=== PATIENT | female | born 1980 | race Caucasian/White ===

== ENCOUNTER 2017-07-21 03:18 | Emergency (ER) | payer SELFPAY ==
[~2017-07-21] VITALS: Ht 157.5 cm; Wt 55.0 kg
[~2017-07-21 03:18] MED LIST: ARIP10IN IM; IBUP1TAB7 PO; MICO100S VAGINAL
[2017-07-21 03:19] VITALS: BP 142/87; PULSE 108; RESP 16; TEMP 98.1; O2SAT 97
[2017-07-21] MEDS ORDERED: CLIN150 PO (03:44)
[2017-07-21] MEDS ORDERED: HYDR-3516 PO (03:44)
[2017-07-21] MEDS ORDERED: ACETAMINOPHEN/HYDROcodone 325 MG/5 MG TAB PO ONE (03:45)
[2017-07-21] MEDS ORDERED: CLINDAMYCIN 150 MG CAP PO ONE (03:45)
--- NOTE | 2017-07-21 03:58 | PD ---
HPI Chief Complaint: Oral / Dental Pain or Problem Time Seen by Provider: 03:37 Travel History International Travel<30 days: No Contact w/Intl Traveler<30days: No Traveled to known affect area: No History of Present Illness HPI 37-year-old white female presents from his department complaints of dental pain and facial swelling over last 3 days. Patient states that she's had problems with her teeth in the past have been more severe in the last 3 days. Pain is moderate to severe. No alleviating factors. No exacerbating factors. She denies any difficulty swallowing. No shortness of breath or wheezing. PFSH Past Medical History Medical History: Denies Significant Hx Diminished Hearing: No Tetanus Vaccination: Unknown ?: Not LMP: 06/28/2017 Tubal Ligation: Yes Past Surgical History Section: Yes Social History Alcohol Use: Yes (socially) Tobacco Use: Yes Substance Use: No Allergies-Medications (Allergen,Severity, Reaction): Coded Allergies: penicillin G (Verified Allergy, Severe, hives, 04/09/17) Reported Meds & Prescriptions Reported Meds & Active Scripts Active Hydrocodone-Acetaminophen 5-325 mg Tab 1 Tab PO Q6H PRN Cleocin (Clindamycin HCl) 150 Mg Cap 300 Mg PO Q6H Miconazole 7 Vaginal Supp 100 Mg Supp 100 Mg VAGINAL HS Ibuprofen 800 Mg Tab 800 Mg PO Q6HR PRN Reported Abilifalfred Maintena Dual Chamber Inj (Aripiprazole) 400 Mg Inj 400 Mg IM ONCE Review of Systems General / Constitutional: No: Fever Eyes: No: Visual changes HENT: Positive: Dental Difficulties, No: Headaches, Sore Throat, Neck Pain, Ear Discharge, Earache Cardiovascular: No: Chest Pain or Discomfort Respiratory: No: Shortness of Breath Gastrointestinal: No: Abdominal Pain Genitourinary: No: Dysuria Musculoskeletal: No: Pain Skin: No Rash Neurologic: No: Weakness Psychiatric: No: Depression Endocrine: No: Polydipsia Hematologic/Lymphatic: No: Easy Bruising Physical Exam Narrative GENERAL: Well-developed, well-nourished in no acute distress. Nontoxic appearing. HEAD: Patient has mild swelling to her right maxilla, atraumatic. EYES: Pupils equal round and reactive. Extraocular motions intact. No scleral icterus. No injection or drainage. ENT: TMs clear without erythema. The external auditory canals clear. Nose: clear . Posterior pharynx is pink and moist. No tonsillar edema or exudate. Uvula midline. Airway patent. Patient has diffuse periodontal disease. She has multiple dental caries and gingival recession. She has a tooth and what appears to be #7 decayed to the gumline. There is an obvious abscess. Tender to percussion. NECK: Trachea midline.Supple, nontender, moves head freely. No central bony tenderness or spasm. CARDIOVASCULAR: Regular rate and rhythm without murmurs, gallops, or rubs. RESPIRATORY: Clear to auscultation. Breath sounds equal bilaterally. No wheezes , rales, or rhonchi. GASTROINTESTINAL: Abdomen soft, non-tender, nondistended. No hepato-splenomegaly , or palpable masses. No guarding. EXTREMITIES: No clubbing, cyanosis, or edema. No joint tenderness, effusion, or edema noted. BACK: Nontender without deformity or crepitance. No flank tenderness. Data Data Last Documented VS Vital Signs Date Time Temp Pulse Resp B/P (MAP) Pulse Ox O2 Delivery O2 Flow Rate FiO2 07/21/17 03:19 98.1 108 16 142/87 (105) 97 Room Air Orders Orders Clindamycin (Cleocin) (07/21/17 03:45) Acetamin-Hydrocod 325-5 Mg ([place] 5-325 (07/21/17 03:45) Ed Discharge Order (07/21/17 03:47) MDM Medical Decision Making Medical Screen Exam Complete: Yes Emergency Medical Condition: Yes Medical Record Reviewed: Yes Differential Diagnosis MDM: Moderate Differential diagnoses: Dental abscess, dental caries, osteitis, cellulitis Narrative Course Patient's given clindamycin 300 mg by mouth and Lortab 5 milligram by mouth. This is dental abscess Diagnosis Primary Impression: acute dental abscess Patient Instructions: Narcotic given in the ED Med/Other Pt SpecificInfo: Prescription(s) given (pHYSICAL THROAT ALL OUT OF ) Scripts Hydrocodone-Acetaminophen (Hydrocodone-Acetaminophen) 5-325 mg Tab 1 TAB PO Q6H Y for PAIN, #12 TAB 0 Refills Prov: Haris Rogers MD 07/21/17 Clindamycin (Cleocin) 150 Mg Cap 300 MG PO Q6H for Infection, #80 CAP 0 Refills Prov: Haris Rogers MD 07/21/17 Disposition: 01 DISCHARGE HOME (ERASED) Condition: Stable Migue Kaufman Jul 21, 2017 03:57
== END 2017-07-21 04:09 | disposition home or self-care (01) ==
LOC: NEPD 03:18
DX: K04.7 Periapical abscess without sinus (principal); K02.9 Dental caries, unspecified; Z72.0 Tobacco use
CPT/HCPCS: 99284

== ENCOUNTER 2017-11-10 03:42 | Inpatient (IN) | payer SELFPAY ==
[~2017-11-10] VITALS: Ht 157.5 cm; Wt 50.0 kg
[~2017-11-10 03:42] MED LIST changes: +CLIN150 PO; +HYDR-3516 PO
[2017-11-10 03:50] VITALS: BP 135/75; PULSE 98; RESP 16; TEMP 98.5; O2SAT 98
--- NOTE | 2017-11-10 09:52 | PD ---
HPI Chief Complaint: Skin Problem Time Seen by Provider: 09:49 Travel History International Travel<30 days: No Contact w/Intl Traveler<30days: No Traveled to known affect area: No History of Present Illness HPI Patient 37-year-old female presents emergency department for evaluation of multiple areas of cellulitis and abscess on her person. She states is been going on for months. She states that the pain became unbearable today and that is why she decided to come in and be seen. She does admit to IV heroin use states he just started again about a week ago because of all the stresses in her life. She states that she is very concerned because she has a history of endocarditis and has to be very careful. She denies any fevers denies any chest pain denies any shortness of breath. She is near hysterical on arrival. Her chief complaint is at her right thumb is swollen. PFSH Past Medical History Heart Rhythm Problems: Yes (endocarditis) Cerebrovascular Accident: Yes Diminished Hearing: No Tetanus Vaccination: < 5 Years Influenza Vaccination: No ?: Not LMP: 11/09/2017 Tubal Ligation: Yes Past Surgical History Section: Yes Social History Alcohol Use: No Tobacco Use: Yes Substance Use: Yes (IV drug user) Allergies-Medications (Allergen,Severity, Reaction): Coded Allergies: penicillin G (Verified Allergy, Severe, hives, 11/10/17) Reported Meds & Prescriptions Reported Meds & Active Scripts Active Hydrocodone-Acetaminophen 5-325 mg Tab 1 Tab PO Q6H PRN Cleocin (Clindamycin HCl) 150 Mg Cap 300 Mg PO Q6H Miconazole 7 Vaginal Supp 100 Mg Supp 100 Mg VAGINAL HS Ibuprofen 800 Mg Tab 800 Mg PO Q6HR PRN Reported Abilify Maintena Dual Chamber Inj (Aripiprazole) 400 Mg Inj 400 Mg IM ONCE Review of Systems Except as stated in HPI: all other systems reviewed are Neg Physical Exam Narrative GENERAL: WD/WN, anxious. SKIN: Warm and dry. HEAD: Atraumatic. Normocephalic. EYES: Pupils equal and round. No scleral icterus. No injection or drainage. ENT: No nasal bleeding or discharge. Mucous membranes pink and moist. Skin changes of tip of nose could be consistent with osler node or cellulitis. Cellulitis LLE, scattered nodules all over body. Right thumb swelling, no focalized fluctuance. NECK: Trachea midline. No JVD. CARDIOVASCULAR: Regular rate and rhythm. No MGR. RESPIRATORY: No accessory muscle use. Clear to auscultation. Breath sounds equal bilaterally. GASTROINTESTINAL: Abdomen soft, non-tender, nondistended. Hepatic and splenic margins not palpable. MUSCULOSKELETAL: Extremities without clubbing, cyanosis, or edema. No obvious deformities. NEUROLOGICAL: Awake and alert. No obvious cranial nerve deficits. Motor grossly within normal limits. Five out of 5 muscle strength in the arms and legs. Normal speech. PSYCHIATRIC: Appropriate mood and affect; insight and judgment normal. Data Data Last Documented VS Vital Signs Date Time Temp Pulse Resp B/P (MAP) Pulse Ox O2 Delivery O2 Flow Rate FiO2 11/10/17 12:17 85 18 118/79 (92) 100 Room Air 11/10/17 03:50 98.5 Orders Orders Electrocardiogram (11/10/17 09:49) Ckmb (Isoenzyme) Profile (11/10/17 09:49) Complete Blood Count With Diff (11/10/17 09:49) Comprehensive Metabolic Panel (11/10/17 09:49) Magnesium (Mg) (11/10/17 09:49) Prothrombin Time / Inr (Pt) (11/10/17 09:49) Act Partial Throm Time (Ptt) (11/10/17 09:49) Troponin I (11/10/17 09:49) Chest, Single Ap (11/10/17 09:49) Ecg Monitoring (11/10/17 09:49) Iv Access Insert/Monitor (11/10/17 09:49) Oximetry (11/10/17 09:49) Oxygen Administration (11/10/17 09:49) Sodium Chloride 0.9% Flush (Ns Flush) (11/10/17 10:00) Lactic Acid (11/10/17 09:49) Westergren Sedimentation Rate (11/10/17 09:49) C-Reactive Protein (Crp) (11/10/17 09:49) Blood Culture (11/10/17 10:32) Ct Thorax/ Chest Wo Iv Contras (11/10/17 ) Morphine Inj (Morphine Inj) (11/10/17 11:30) Vancomycin Inj (Vancomycin Inj) (11/10/17 11:30) Aztreonam Inj (Azactam Inj) (11/10/17 11:30) Admit Order (Ed Use Only) (11/10/17 ) Labs Laboratory Tests Test 11/10/17 10:45 White Blood Count 11.3 TH/MM3 Red Blood Count 4.07 MIL/MM3 Hemoglobin 12.4 GM/DL Hematocrit 35.0 % Mean Corpuscular Volume 86.1 FL Mean Corpuscular Hemoglobin 30.5 PG Mean Corpuscular Hemoglobin Concent 35.5 % Red Cell Distribution Width 13.2 % Platelet Count 303 TH/MM3 Mean Platelet Volume 7.8 FL Neutrophils (%) (Auto) 76.3 % Lymphocytes (%) (Auto) 13.6 % Monocytes (%) (Auto) 7.2 % Eosinophils (%) (Auto) 2.4 % Basophils (%) (Auto) 0.5 % Neutrophils # (Auto) 8.6 TH/MM3 Lymphocytes # (Auto) 1.5 TH/MM3 Monocytes # (Auto) 0.8 TH/MM3 Eosinophils # (Auto) 0.3 TH/MM3 Basophils # (Auto) 0.1 TH/MM3 CBC Comment DIFF FINAL Differential Comment Erythrocyte Sedimentation Rate 50 mm/hr Prothrombin Time 9.8 SEC Prothromb Time International Ratio 1.0 RATIO Activated Partial Thromboplast Time 23.9 SEC Blood Urea Nitrogen 9 MG/DL Creatinine 0.72 MG/DL Random Glucose 96 MG/DL Total Protein 7.2 GM/DL Albumin 3.1 GM/DL Calcium Level 8.6 MG/DL Magnesium Level 1.9 MG/DL Alkaline Phosphatase 61 U/L Aspartate Amino Transf (AST/SGOT) 36 U/L Alanine Aminotransferase (ALT/SGPT) 38 U/L Total Bilirubin 0.5 MG/DL Sodium Level 138 MEQ/L Potassium Level 3.4 MEQ/L Chloride Level 104 MEQ/L Carbon Dioxide Level 26.0 MEQ/L Anion Gap 8 MEQ/L Estimat Glomerular Filtration Rate 91 ML/MIN Lactic Acid Level 1.0 mmol/L Total Creatine Kinase 86 U/L Troponin I LESS THAN 0.02 NG/ML C-Reactive Protein 5.90 MG/DL [facility] Medical Decision Making Medical Screen Exam Complete: Yes Emergency Medical Condition: Yes Differential Diagnosis Cellulitis, Bacteremia, Sepsis, Endocarditis. Narrative Course Patient roomed in ER, labs, CT chest, vs are fair. However, patient scattered erythematous nodules and cellulitis on person, i have concerns for bacteremia and endocardidits in this patient. Broad spectrum antibiotics started. Will be admitted to Dr. Elliott. Diagnosis Primary Impression: Cellulitis Additional Impression: Bacteremia Admitting Information Admitting Physician Requests: Admit Condition: Thony Rhodes MD Nov 10, 2017 09:52
[2017-11-10] MEDS ORDERED: SODIUM CHLORIDE 0.9% FLUSH 10 ML FLUSH IVF PRN (10:00)
[2017-11-10 10:37] VITALS: O2SAT 100
[2017-11-10 10:57] LABS: AUTOMATED NEUTROPHIL # 8.6 TH/MM3 (1.8-7.7); BASOPHIL # 0.1 TH/MM3 (0-0.2); BASOPHIL % 0.5 % (0.0-2.0); EOSINOPHIL # 0.3 TH/MM3 (0-0.4); EOSINOPHIL % 2.4 % (0.0-4.0); HEMOGLOBIN 12.4 GM/DL (11.6-15.3); LYMPH % 13.6 % (9.0-44.0); LYMPHOCYTE # 1.5 TH/MM3 (1.0-4.8); MEAN CELL VOLUME 86.1 FL (80.0-100.0); MEAN CORPUSCULAR HEMOGLOBIN 30.5 PG (27.0-34.0); MEAN CORPUSCULAR HGB CONC 35.5 % (32.0-36.0); MEAN PLATELET VOLUME 7.8 FL (7.0-11.0); MONO % 7.2 % (0.0-8.0); MONOCYTE # 0.8 TH/MM3 (0-0.9); NEUT % 76.3 % (16.0-70.0); PLATELET COUNT 303 TH/MM3 (150-450); RED BLOOD COUNT 4.07 MIL/MM3 (4.00-5.30); RED CELL DISTRIBUTION WIDTH 13.2 % (11.6-17.2); WHITE BLOOD COUNT 11.3 TH/MM3 (4.0-11.0)
[2017-11-10 11:07] LABS: PROTHROMBIN TIME - PATIENT 9.8 SEC (9.8-11.6)
[2017-11-10 11:13] LABS: ALBUMIN 3.1 GM/DL (3.4-5.0); AST (GOT) 36 U/L (15-37); BLOOD UREA NITROGEN 9 MG/DL (7-18); CALCIUM 8.6 MG/DL (8.5-10.1); CHLORIDE 104 MEQ/L (98-107); CREATININE 0.72 MG/DL (0.50-1.00); GLOMERULAR FILTRATION RATE 91 ML/MIN (>89); GLUCOSE,RANDOM 96 MG/DL (74-106); MAGNESIUM 1.9 MG/DL (1.5-2.5); SODIUM (NA) 138 MEQ/L (136-145)
[2017-11-10 11:16] LABS: ALKALINE PHOSPHATASE 61 U/L (45-117); ALT (GPT) 38 U/L (10-53); TOTAL BILIRUBIN ADULT 0.5 MG/DL (0.2-1.0); TOTAL PROTEIN 7.2 GM/DL (6.4-8.2); TROPONIN I LESS THAN 0.02 NG/ML (0.02-0.05)
--- NOTE | 2017-11-10 11:23 | RADRPT ---
EXAM DATE/TIME: 11/10/2017 11:12 [facility] COMPARISON: CHEST SINGLE AP, November 10, 2017, 10:55. INDICATIONS : Shortness of breath, possible pneumonia. RADIATION DOSE: 3.88 CTDIvol (mGy) MEDICAL HISTORY : Pancreatitis. SURGICAL HISTORY : section. Tubal. ENCOUNTER: Initial ACUITY: 1 day PAIN SCALE: 0/10 LOCATION: chest TECHNIQUE: Volumetric scanning of the chest was performed. Using automated exposure control and adjustment of t he mA and/or kV according to patient size, radiation dose was kept as low as reasonably achievable to obtain optimal diagnostic quality images. DICOM format image data is available electronically for r eview and comparison. Follow-up recommendations for detected pulmonary nodules are based at a minimum on nodule size and pa tient risk factors according to Fleischner Society Guidelines. FINDINGS: LUNGS: There is no consolidation or pneumothorax. No concerning pulmonary nodule is visualized. Mild perib ronchial thickening in the lower lobes without consolidation PLEURAE: There is no pleural thickening or pleural effusion. MEDIASTINUM: The heart and great vessels demonstrate no acute abnormality. There is no mediastinal or hilar lymph adenopathy. AXILLAE: Within normal limits. No lymphadenopathy. MUSCULOSKELETAL: Within normal limits for patient age. MISCELLANEOUS: Minimal nephrocalcinosis is noted incompletely evaluated on today's exam. CONCLUSION: Mild peribronchial thickening otherwise negative. There is no pleural effusion or consolidation. Sim Crow MD FACR on November 10, 2017 at 11:20 Board Certified Radiologist. This report was verified electronically.
[2017-11-10] MEDS ORDERED: VANCOMYCIN INJ 1,000 MG in SODIUM CHLOR 0.9% 250 ML INJ 250 ML IV ONE (11:30)
[2017-11-10] MEDS ORDERED: AZTREONAM INJ 1,000 MG in SODIUM CHLORIDE 0.9% INJ 100 ML IV ONE (11:30)
[2017-11-10] MEDS ORDERED: MORPHINE SULFATE 4 MG/ML INJ IV PUSH ONE (11:30)
--- NOTE | 2017-11-10 11:32 | RADRPT ---
EXAM DATE/TIME: 11/10/2017 10:55 [facility] COMPARISON: No previous studies available for comparison. INDICATIONS : Chest pain. 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 SURGICAL HISTORY : None. ENCOUNTER: Initial ACUITY: 1 day PAIN SCORE: 0/10 LOCATION: Bilateral chest FINDINGS: A single view of the chest demonstrates the lungs to be symmetrically aerated without evidence of mas s, infiltrate or effusion. The cardiomediastinal contours are unremarkable. Osseous structures are intact. CONCLUSION: 1. No acute cardiopulmonary disease. Rayo Nelson MD on November 10, 2017 at 11:29 Board Certified Radiologist. This report was verified electronically.
[2017-11-10 12:17] VITALS: BP 118/79; PULSE 85; RESP 18; O2SAT 100
[2017-11-10] MEDS ORDERED: ACETAMINOPHEN 325 MG TAB PO PRN ×2 (12:30)
[2017-11-10] MEDS ORDERED: LACTULOSE SYRUP 20 GM/30 ML CUP PO PRN (12:30)
[2017-11-10] MEDS ORDERED: SENNOSIDES 8.6 MG TAB PO PRN (12:30)
[2017-11-10] MEDS ORDERED: ONDANSETRON HCL 4 MG/2 ML VIAL IVP PRN (12:30)
[2017-11-10] MEDS ORDERED: BISACODYL 10 MG SUPP RECTAL PRN (12:30)
[2017-11-10] MEDS ORDERED: MORPHINE SULFATE 2 MG/ML INJ IV PUSH PRN ×3 (12:30)
[2017-11-10] MEDS ORDERED: Vancomycin Consult Pharmacy 1 EA OTHER SCH (12:30)
[2017-11-10] MEDS ORDERED: METOCLOPRAMIDE HCL 10 MG/2 ML VIAL IV PUSH PRN (12:30)
[2017-11-10] MEDS ORDERED: MAGNESIUM HYDROXIDE SUSP 30 ML CUP PO PRN (12:30)
[2017-11-10] MEDS ORDERED: NALOXONE HCL 0.4 MG/ML AMP IV PUSH PRN (12:30)
[2017-11-10] MEDS ORDERED: SODIUM CHLORIDE 0.9% FLUSH 10 ML FLUSH IV FLUSH PRN ×2 (12:30→13:15)
[2017-11-10] MEDS ORDERED: HALOPERIDOL LACTATE 5 MG/ML AMP IM PRN (13:15)
[2017-11-10] MEDS ORDERED: LORazepam 1 MG TAB PO PRN (13:15)
[2017-11-10] MEDS ORDERED: LORazepam 2 MG/ML VIAL IV PUSH PRN ×4 (13:15)
[2017-11-10] MEDS ORDERED: FLUMAZENIL 0.5 MG/5 ML VIAL IV PUSH PRN (13:15)
[2017-11-10] MEDS ORDERED: LORazepam 2 MG TAB PO PRN (13:15)
[2017-11-10] MEDS ORDERED: cloNIDine HCL 0.1 MG TAB PO PRN (13:15)
--- NOTE | 2017-11-10 13:26 | HHI.HP ---
[facility] No Primary Care Physician Admission Diagnosis Multiple Cellulitis, Possible Bacteremia, Possible Endocarditis. 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 Presented emergency department for evaluation multiple areas of cellulitis and abscess. She has multiple areas on her left leg as well as her right thumb. Been going on for probably a month or so. She states that the pain became unbearable today and she decided to come into the emergency department for it. Does admit to IV heroin use states she started again a couple weeks ago because of stresses in her life. She states that she is very concerned because she has a history of endocarditis. Denies any fevers denies any chest pain or shortness of breath has the right thumb being swollen which appears to be a felon We will get an echocardiogram will start on vancomycin and is Azactam and consult hand surgery Review of Systems Constitutional: COMPLAINS OF: Chills, DENIES: Diaphoretic episodes, Fatigue, Fever, Weight gain, Weight loss, Dizziness, Change in appetite, Night Sweats Endocrine: DENIES: Abnorml menstrual pattern, Heat/cold intolerance, Polydipsia , Polyuria, Polyphagia Eyes: DENIES: Blurred vision, Diplopia, Eye inflammation, Eye pain, Vision loss , Photosensitivity, Double Vision Ears, nose, mouth, throat: DENIES: Tinnitus, Hearing loss, Vertigo, Nasal discharge, Oral lesions, Throat pain, Hoarseness, Running Nose, Epistaxis, Sinus Pain, Toothache, Odynophagia Respiratory: DENIES: Apneas, Cough, Snoring, Wheezing, Hemoptysis, Sputum production Cardiovascular: DENIES: Chest pain, Palpitations, Syncope, Dyspnea on Exertion , PND, Lower Extremity Edema Gastrointestinal: DENIES: Abdominal pain, Black stools, Bloody stools, Constipation, Diarrhea Genitourinary: DENIES: Abnormal vaginal bleeding, Dysmenorrhea, Dyspareunia, Sexual dysfunction Musculoskeletal: DENIES: Joint pain, Muscle aches, Stiffness, Joint Swelling Integumentary: COMPLAINS OF: Abnormal pigmentation, Rash, Nail changes, DENIES : Pruritus, Breast masses, Breast skin changes, Nipple discharge Hematologic/lymphatic: DENIES: Bruising, Lymphadenopathy Immunologic/allergic: DENIES: Eczema, Urticaria Neurologic: COMPLAINS OF: Abnormal gait, Poor Balance, DENIES: Headache, Localized weakness, Paresthesias, Seizures, Speech Problems, Tremor Psychiatric: COMPLAINS OF: Anxiety, Mood changes, Depression, DENIES: Confusion , Hallucinations, Agitation, Suicidal Ideation, Homicidal Ideation, Delusions Except as stated in HPI: all other systems reviewed are Neg Past Family Social History Past Medical History History of endocarditis treated with vancomycin a couple years ago 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 Tubal ligation Tobacco abuse IV drug abuse with heroin Past Surgical History Tubal ligation section Reported Medications Reported Meds & Active Scripts Active Hydrocodone-Acetaminophen 5-325 mg Tab 1 Tab PO Q6H PRN Cleocin (Clindamycin HCl) 150 Mg Cap 300 Mg PO Q6H Miconazole 7 Vaginal Supp 100 Mg Supp 100 Mg VAGINAL HS Ibuprofen 800 Mg Tab 800 Mg PO Q6HR PRN Reported Abilifalfred Maintena Dual Chamber Inj (Aripiprazole) 400 Mg Inj 400 Mg IM ONCE Allergies: Coded Allergies: penicillin G (Verified Allergy, Severe, hives, 11/10/17) Active Ordered Medications Current Medications Sodium Chloride (NS Flush) 2 ml UNSCH PRN IVF FLUSH AFTER USING IV ACCESS; Start 11/10/17 at 10:00; Stop 11/10/17 at 13:03; Status DC Morphine Sulfate (Morphine Inj) 4 mg ONCE ONCE IV PUSH Last administered on at 11:42; Start 11/10/17 at 11:30; Stop 11/10/17 at 11:51; Status DC Vancomycin HCl 1000 mg/Sodium Chloride 250 ml @ 250 mls/hr ONCE ONCE IV Last administered on 11/10/17at 11:42; Start 11/10/17 at 11:30; Stop 11/10/17 at 12:29 ; Status DC Aztreonam 1000 mg/ Sodium Chloride 100 ml @ 200 mls/hr ONCE ONCE IV Last administered on 11/10/17at 12:20; Start 11/10/17 at 11:30; Stop 11/10/17 at 11:59 ; Status DC Pharmacy Profile Note 0 ml @ 0 mls/hr UNSCH OTHER ; Start 11/10/17 at 12:30 Aztreonam 1000 mg/ Sodium Chloride 100 ml @ 200 mls/hr Q12H IV ; Start at 00:00 Sodium Chloride 1,000 ml @ 100 mls/hr Q10H IV ; Start 11/10/17 at 12:23 Sodium Chloride (NS Flush) 2 ml UNSCH PRN IV FLUSH FLUSH AFTER USING IV ACCESS ; Start 11/10/17 at 12:30 Sodium Chloride (NS Flush) 2 ml BID IV FLUSH ; Start 11/10/17 at 21:00 Acetaminophen (Tylenol) 650 mg Q4H PRN PO TEMP > 100.4; Start 11/10/17 at 12:30 Ondansetron HCl (Zofran Inj) 4 mg Q6H PRN IVP NAUSEA OR VOMITING; Start at 12:30 Metoclopramide HCl (Reglan Inj) 5 mg Q6H PRN IV PUSH NAUSEA OR VOMITING; Start 11/10/17 at 12:30 Temazepam (Restoril) 15 mg HS PRN PO INSOMNIA; Start 11/10/17 at 21:00 Enoxaparin Sodium (Lovenox Inj) 40 mg Q24H SQ ; Start 11/10/17 at 14:00 Acetaminophen (Tylenol) 650 mg Q6H PRN PO PAIN SCALE 1 TO 2; Start 11/10/17 at 12:30 Oxycodone HCl (Roxicodone) 10 mg Q4H PRN PO PAIN SCALE 6 TO 10; Start 11/10/17 at 12:30 Morphine Sulfate (Morphine Inj) 2 mg Q3H PRN IV PUSH Pain 3-5; if unable to take PO; Start 11/10/17 at 12:30 Morphine Sulfate (Morphine Inj) 4 mg Q3H PRN IV PUSH Pain 6-10;if unable to take PO; Start 11/10/17 at 12:30 Morphine Sulfate (Morphine Inj) 4 mg Q3H PRN IV PUSH BREAKTHROUGH PAIN; Start 11/10/17 at 12:30 Oxycodone HCl (Roxicodone) 5 mg Q4H PRN PO PAIN SCALE 3 TO 5; Start 11/10/17 at 12:30 Naloxone HCl (Narcan Inj) 0.4 mg UNSCH PRN IV PUSH SEE LABEL COMMENTS; Start at 12:30 Senna/Docusate Sodium (Stephanie-Colace) 1 tab BID PO ; Start 11/10/17 at 21:00 Magnesium Hydroxide (Milk Of Magnesia Liq) 30 ml Q12H PRN PO Mild constipation ; Start 11/10/17 at 12:30 Sennosides (Senokot) 17.2 mg Q12H PRN PO Moderate constipation; Start 11/10/17 at 12:30 Bisacodyl (Dulcolax Supp) 10 mg DAILY PRN RECTAL SEVERE CONSITIPATION; Start at 12:30 Lactulose (Lactulose Liq) 30 ml DAILY PRN PO SEVERE CONSITIPATION; Start at 12:30 Family History Denies other than depression and anxiety Tobacco and alcohol use Social History Tobacco abuse smokes a pack daily Denies any alcohol IV drug use with heroin Physical Exam Vital Signs Vital Signs Date Time Temp Pulse Resp B/P (MAP) Pulse Ox O2 Delivery O2 Flow Rate FiO2 11/10/17 12:17 85 18 118/79 (92) 100 Room Air 11/10/17 10:37 100 Room Air 11/10/17 10:37 98 Room Air 11/10/17 03:50 98.5 98 16 135/75 (95) 98 Physical Exam GENERAL: This is a well-nourished, well-developed patient, in mild distress. SKIN: No rashes, ecchymoses or lesions. Cool and dry. Has multiple wounds on her left lower extremity has a felon on her right thumb that is swollen and tender HEAD: Atraumatic. Normocephalic. No temporal or scalp tenderness. EYES: Pupils equal round and reactive. Extraocular motions intact. No scleral icterus. No injection or drainage. ENT: Nose without bleeding, purulent drainage or septal hematoma. Throat without erythema, tonsillar hypertrophy or exudate. Uvula midline. Airway patent. NECK: Trachea midline. No JVD or lymphadenopathy. Supple, nontender, no meningeal signs. CARDIOVASCULAR: Regular rate and rhythm without murmurs, gallops, or rubs. S1- S2 no S3 or S4 RESPIRATORY: Clear to auscultation. Breath sounds equal bilaterally. No wheezes , rales, or rhonchi. GASTROINTESTINAL: Abdomen soft, non-tender, nondistended. No hepato-splenomegaly , or palpable masses. No guarding. MUSCULOSKELETAL: Extremities without clubbing, cyanosis, or edema. No joint tenderness, effusion, or edema noted. No calf tenderness. Negative Homans sign bilaterally. Multiple wounds on left lower extremity right thumb has a felon NEUROLOGICAL: Awake and alert. Cranial nerves II through XII intact. Motor and sensory grossly within normal limits. Five out of 5 muscle strength in all muscle groups. Normal speech. Insight and judgment is limited Mood and behavior somewhat appropriate Laboratory Laboratory Tests Test 11/10/17 10:45 White Blood Count 11.3 Red Blood Count 4.07 Hemoglobin 12.4 Hematocrit 35.0 Mean Corpuscular Volume 86.1 Mean Corpuscular Hemoglobin 30.5 Mean Corpuscular Hemoglobin Concent 35.5 Red Cell Distribution Width 13.2 Platelet Count 303 Mean Platelet Volume 7.8 Neutrophils (%) (Auto) 76.3 Lymphocytes (%) (Auto) 13.6 Monocytes (%) (Auto) 7.2 Eosinophils (%) (Auto) 2.4 Basophils (%) (Auto) 0.5 Neutrophils # (Auto) 8.6 Lymphocytes # (Auto) 1.5 Monocytes # (Auto) 0.8 Eosinophils # (Auto) 0.3 Basophils # (Auto) 0.1 CBC Comment DIFF FINAL Differential Comment Erythrocyte Sedimentation Rate 50 Prothrombin Time 9.8 Prothromb Time International Ratio 1.0 Activated Partial Thromboplast Time 23.9 Blood Urea Nitrogen 9 Creatinine 0.72 Random Glucose 96 Total Protein 7.2 Albumin 3.1 Calcium Level 8.6 Magnesium Level 1.9 Alkaline Phosphatase 61 Aspartate Amino Transf (AST/SGOT) 36 Alanine Aminotransferase (ALT/SGPT) 38 Total Bilirubin 0.5 Sodium Level 138 Potassium Level 3.4 Chloride Level 104 Carbon Dioxide Level 26.0 Anion Gap 8 Estimat Glomerular Filtration Rate 91 Lactic Acid Level 1.0 Total Creatine Kinase 86 Troponin I LESS THAN 0.02 C-Reactive Protein 5.90 Date/Time Source Procedure Growth Status 11/10/17 10:50 Blood Peripheral Aerobic Blood Culture Pending Received 11/10/17 10:50 Blood Peripheral Anaerobic Blood Culture Pending Received Result Diagram: 11/10/17 1045 11/10/17 1045 Imaging Last Impressions Chest X-Ray 11/10/17 0949 Signed Impressions: Service Date/Time: Friday, November 10, 2017 10:55 - CONCLUSION: 1. No acute cardiopulmonary disease. Rayo Nelson MD Chest CT 11/10/17 0000 Signed Impressions: Service Date/Time: Friday, November 10, 2017 11:12 - CONCLUSION: Mild peribronchial thickening otherwise negative. There is no pleural effusion or consolidation. Sim Crow MD FACR Caprini VTE Risk Assessment Caprini VTE Risk Assessment: Mod/High Risk (score >= 2) Caprini Risk Assessment Model Point Value = 1 Point Value = 2 Point Value = 3 Point Value = 5 Age 41-60 Minor surgery BMI > 25 kg/m2 Swollen legs Varicose veins or History of unexplained or recurrent spontaneous Oral contraceptives or hormone replacement Sepsis (< 1 month) Serious lung disease, including pneumonia (< 1 month) Abnormal pulmonary function Acute myocardial infarction Congestive heart failure (< 1 month) History of inflammatory bowel disease Medical patient at bed rest Age 61-74 Arthroscopic surgery Major open surgery (> 45 min) Laparoscopic surgery (> 45 min) Malignancy Confined to bed (> 72 hours) Immobilizing plaster cast Central venous access Age >= 75 History of VTE Family history of VTE Factor V Leiden Prothrombin [id number] Lupus anticoagulant Anticardiolipin antibodies Elevated serum homocysteine Heparin-induced thrombocytopenia Other congenital or acquired thrombophilia Stroke (< 1 month) Elective arthroplasty Hip, pelvis, or leg fracture Acute spinal cord injury (< 1 month) Prophylaxis Regimen Total Risk Factor Score Risk Level Prophylaxis Regimen 0-1 Low Early ambulation 2 Moderate Order ONE of the following: *Sequential Compression Device (SCD) *Heparin 5000 units SQ BID 3-4 Higher Order ONE of the following medications: *Heparin 5000 units SQ TID *Enoxaparin/Lovenox 40 mg SQ daily (WT < 150 kg, CrCl > 30 mL/min) *Enoxaparin/Lovenox 30 mg SQ daily (WT < 150 kg, CrCl > 10-29 mL/min) *Enoxaparin/Lovenox 30 mg SQ BID (WT < 150 kg, CrCl > 30 mL/min) AND/OR *Sequential Compression Device (SCD) 5 or more Highest Order ONE of the following medications: *Heparin 5000 units SQ TID (Preferred with Epidurals) *Enoxaparin/Lovenox 40 mg SQ daily (WT < 150 kg, CrCl > 30 mL/min) *Enoxaparin/Lovenox 30 mg SQ daily (WT < 150 kg, CrCl > 10-29 mL/min) *Enoxaparin/Lovenox 30 mg SQ BID (WT < 150 kg, CrCl > 30 mL/min) AND *Sequential Compression Device (SCD) Assessment and Plan Assessment and Plan Right thumb diana continue on IV antibiotics with Azactam and vancomycin IV drug abuse with history of endocarditis continue on vancomycin and Azactam will get an echocardiogram may need a BRIDGET Tobacco abuse continue on NicoDerm Heroin abuse have benzodiazepines available for withdrawals DVT prophylaxis with Lovenox GI prophylaxis with Pepcid Withdrawal and pain control with pain meds as prescribed and benzodiazepines Leukocytosis continue on antibiotics Elevated CRP continue on antibiotics Code Status Full code Discussed Condition With Discussed with RN and patient and ER physician Physician Certification 2 Midnight Certification Type: Admission for Inpatient Services Order for Inpatient Services The services are ordered in accordance with Medicare regulations or non- Medicare payer requirements, as applicable. In the case of services not specified as inpatient-only, they are appropriately provided as inpatient services in accordance with the 2-midnight benchmark. Estimated LOS (days): 5 days is the estimated time the patient will need to remain in the hospital, assuming treatment plan goals are met and no additional complications. Post-Hospital Plan: Not yet determined Sim Elliott DO Nov 10, 2017 13:26
[2017-11-10] MEDS ORDERED: NICOTINE 21 MG/24 HR PATCH T-DERMAL ONE (14:00)
[2017-11-10] MEDS: ENOXAPARIN SODIUM 40 MG/0.4 ML SYRINGE SQ SCH (14:13)
[2017-11-10] MEDS: SODIUM CHLOR 0.9% 1000 ML INJ 1,000 ML IV SCH ×2 (14:13→22:23)
--- NOTE | 2017-11-10 15:26 | RADRPT ---
EXAM DATE/TIME: 11/10/2017 13:32 [place] COMPARISON: No previous studies available for comparison. INDICATIONS : Right hand pain in 1st digit swollen. MEDICAL HISTORY : Pancreatitis. SURGICAL HISTORY : Tubal ligation. ENCOUNTER: Initial ACUITY: 1 day PAIN SCORE: Non-responsive. LOCATION: Right hand FINDINGS: Soft tissue swelling distal tuft of the thumb. Small radiopaque foreign body is evident. Fracture i s not appreciated. CONCLUSION: Soft tissue swelling distal soft first digit with tiny radiopaque foreign body. Sim Crow MD FACR on November 10, 2017 at 15:23 Board Certified Radiologist. This report was verified electronically.
[2017-11-10 16:12] VITALS: BP 127/58; PULSE 101; RESP 18; O2SAT 98
[2017-11-10 16:50] LABS: TROPONIN I LESS THAN 0.02 NG/ML (0.02-0.05)
[2017-11-10 16:50] LABS: BILIRUBIN, URINE NEG (NEG); BLOOD, URINE NEG (NEG); GLUCOSE,URINE NEG (NEG); KETONE, URINE NEG (NEG); MUCUS URINE FEW /lpf (OCC); NITRITE,URINE NEG (NEG); SQUAMOUS EPITHELIAL CELL URINE 8 /hpf (0-5); URINE COLOR YELLOW (YELLW/STRAW); URINE LEUKOCYTE ESTERASE TRACE (NEG)
[2017-11-10 18:57] VITALS: BP 113/64; PULSE 98; RESP 22; TEMP 101.2; O2SAT 99
--- NOTE | 2017-11-10 19:36 | MB ---
cc: Jorge L Cuevas MD DATE: 11/10/2017 REASON FOR CONSULTATION: Right thumb infection. HISTORY OF PRESENT ILLNESS: The patient is a 37-year-old right-hand dominant female with history of IV drug abuse, presented to the ED with complaints of right thumb pain, which is worse for the past 1 to 2 days. She also complains of multiple lesions on the skin involving both upper extremities. The patient also complains of pain and swelling over the left leg region. The patient states the right thumb pain has been going on for at least a week and got worsened over the past 2 days. Denies any drainage from the right thumb region. The patient gives a history of right thumb pulp abscess, for which she had incision and drainage and curettage of the distal phalanx a few years ago. She also has a history of endocarditis. Denies any numbness of the thumb. The patient also states the right thumb has been wider when compared to the left thumb of several years' duration. PAST MEDICAL AND SURGICAL HISTORY: Noted and significant for endocarditis and incision and drainage of right thumb pulp abscess. PHYSICAL EXAMINATION: The patient is alert, oriented x 3. She has multiple scabby skin lesions involving both upper extremities including the hand. The right thumb is twice the size of the left thumb. There is swelling over the lateral nail fold and thumb pulp region. Healed surgical scar noted over the thumb pulp region. Exquisite tenderness noted over the thumb pulp distal to the previously placed surgical incision. There is also exquisite tenderness along the ulnar aspect of the nail fold. She has no evidence of flexor tenosynovitis clinically. Range of motion of the thumb IP joint is limited and painful. She has intact capillary refill. She has intact sensation over the thumb pulp. LABORATORY DATA: Reviewed. She has a white count of 11.3 and neutrophil shift of 76%. She had x-rays of the right hand which shows widened distal phalanx and IP joint with irregularity of the distal phalanx tuft. There appears to be like radiopaque material along the lateral aspect of the pulp. The distal phalanx lesion appears to be chronic or old. No evidence of osteolysis noted. ASSESSMENT: A 37-year-old female with right thumb pulp abscess. Plan: will take her emergently for incision and drainage of the abscess. We will also proceed with curettage of the distal phalanx based on the intraoperative findings. We will continue with IV antibiotics. Patient was informed the risks and benefits of the procedure. Jorge L Cuevas MD SE/NOAM , 07:18 PM , 07:35 PM LAUREN
--- NOTE | 2017-11-10 20:03 | EKG ---
Date Performed: 11/10/2017 Time Performed: 10:05:11 PTAGE: 37 years EKG: Sinus rhythm POSSIBLE RIGHT VENTRICULAR CONDUCTION DELAY POSSIBLE LEFT VENTRICULAR HYPERTROPHY PROLONGED QT INTER ALEKSANDRA ABNORMAL ECG NO PREVIOUS TRACING DOCTOR: Armando Morales Interpretating Date/Time 11/10/2017 20:03:09
[2017-11-10] MEDS: FAMOTIDINE 20 MG TAB PO SCH (21:00)
[2017-11-10] MEDS: DOCUSATE SODIUM 50 MG/SENNA 8.6 MG TAB PO SCH (21:00)
[2017-11-10] MEDS ORDERED: TEMAZEPAM 15 MG CAP PO PRN (21:00)
[2017-11-10] MEDS: SODIUM CHLORIDE 0.9% FLUSH 10 ML FLUSH IV FLUSH SCH (21:00)
[2017-11-10] MEDS ORDERED: SODIUM CHLORIDE 0.9% FLUSH 10 ML FLUSH IV FLUSH SCH (21:00)
[2017-11-10] MEDS ORDERED: VANCOMYCIN HCL 1000 MG VIAL ONE (22:27)
--- NOTE | 2017-11-10 23:01 | PD.OP ---
Operative Report Preoperative Diagnosis: (1) felon right thumb Postoperative Diagnosis: (1) felon right thumb Procedure: incision and drainage right thumb pulp abscess Anesthesia: general Surgeon: Jorge L Cuevas Purchasing Engineer(s): michael Operation and Findings: abscess over the hyponychium minimal purulence within the pulp right thumb Jorge L Cuevas MD Nov 10, 2017 23:01
[2017-11-10] MEDS: VANCOMYCIN INJ 750 MG in SODIUM CHLOR 0.9% 250 ML INJ 250 ML IV SCH (23:14)
[2017-11-10] MEDS ORDERED: MIDAZOLAM HCL 2 MG/2 ML VIAL ONE (23:16)
[2017-11-10] MEDS ORDERED: *morphine SULFATE 10 MG/ML PERIprocedure ONLY ONE ×2 (23:19→23:46)
[2017-11-10] MEDS ORDERED: DO NOT ADM ANY ANTICOAGULANT DRUGS PRN (23:30)
[2017-11-11] VITALS (8 sets, daily range): BP systolic 88–125; BP diastolic 51–67; PULSE 55–84; RESP 18–19; TEMP 96.2–97.8; O2SAT 96–98
[2017-11-11] MEDS: AZTREONAM INJ 1,000 MG in SODIUM CHLORIDE 0.9% INJ 100 ML IV SCH ×2 (04:04→15:11)
[2017-11-11 08:30] LABS: ALBUMIN 2.4 GM/DL (3.4-5.0); ALKALINE PHOSPHATASE 59 U/L (45-117); ALT (GPT) 30 U/L (10-53); AST (GOT) 25 U/L (15-37); BICARBONATE 25.8 MEQ/L (21.0-32.0); BLOOD UREA NITROGEN 8 MG/DL (7-18); CALCIUM 7.6 MG/DL (8.5-10.1); CHLORIDE 108 MEQ/L (98-107); CREATININE 0.85 MG/DL (0.50-1.00); FREE T4 1.38 NG/DL (0.76-1.46); GLOMERULAR FILTRATION RATE 75 ML/MIN (>89); GLUCOSE,RANDOM 147 MG/DL (74-106); MAGNESIUM 1.7 MG/DL (1.5-2.5); PHOSPHORUS 2.8 MG/DL (2.5-4.9); SODIUM (NA) 141 MEQ/L (136-145); TOTAL BILIRUBIN ADULT 0.3 MG/DL (0.2-1.0); TOTAL PROTEIN 6.1 GM/DL (6.4-8.2); TROPONIN I LESS THAN 0.02 NG/ML (0.02-0.05)
[2017-11-11] MEDS: REMOVE OLD PATCH T-DERMAL SCH (09:00)
[2017-11-11] MEDS: FAMOTIDINE 20 MG TAB PO SCH ×2 (09:29→21:08)
[2017-11-11] MEDS: MULTIVITAMINS/MINERALS THERAPEUTIC TAB PO SCH (09:29)
[2017-11-11] MEDS: DOCUSATE SODIUM 50 MG/SENNA 8.6 MG TAB PO SCH ×2 (09:29→21:08)
[2017-11-11] MEDS: THIAMINE HCL 100 MG TAB PO SCH (09:29)
[2017-11-11] MEDS: NICOTINE 21 MG/24 HR PATCH T-DERMAL SCH (09:29)
[2017-11-11] MEDS: FOLIC ACID 1 MG TAB PO SCH (09:30)
[2017-11-11] MEDS: SODIUM CHLOR 0.9% 1000 ML INJ 1,000 ML IV SCH ×2 (09:33→21:07)
[2017-11-11] MEDS: SODIUM CHLORIDE 0.9% FLUSH 10 ML FLUSH IV FLUSH SCH ×2 (09:33→21:00)
[2017-11-11 12:24] LABS: AUTOMATED NEUTROPHIL # 4.6 TH/MM3 (1.8-7.7); BASOPHIL % 0.4 % (0.0-2.0); EOSINOPHIL % 0.6 % (0.0-4.0); HEMATOCRIT 35.6 % (35.0-46.0); HEMOGLOBIN 12.1 GM/DL (11.6-15.3); LYMPH % 18.2 % (9.0-44.0); LYMPHOCYTE # 1.1 TH/MM3 (1.0-4.8); MEAN CELL VOLUME 89.1 FL (80.0-100.0); MEAN CORPUSCULAR HEMOGLOBIN 30.2 PG (27.0-34.0); MEAN CORPUSCULAR HGB CONC 33.9 % (32.0-36.0); MEAN PLATELET VOLUME 8.6 FL (7.0-11.0); MONO % 6.9 % (0.0-8.0); MONOCYTE # 0.4 TH/MM3 (0-0.9); NEUT % 73.9 % (16.0-70.0); PLATELET COUNT 276 TH/MM3 (150-450); RED CELL DISTRIBUTION WIDTH 13.4 % (11.6-17.2); WHITE BLOOD COUNT 6.2 TH/MM3 (4.0-11.0)
--- NOTE | 2017-11-11 15:01 | HHI.PR ---
Subjective Remarks denies any pain currently afebrile no nausea or vomiting Objective Vitals Vital Signs Date Time Temp Pulse Resp B/P (MAP) Pulse Ox O2 Delivery O2 Flow Rate FiO2 11/11/17 12:00 97.0 63 18 102/59 (73) 96 11/11/17 08:00 97.6 55 18 96/52 (67) 97 11/11/17 06:21 92/54 (67) 11/11/17 04:00 97.0 68 18 88/52 (64) 96 11/11/17 00:01 Nasal Cannula 2.00 11/11/17 00:00 97.8 84 19 125/67 (86) 96 11/10/17 23:45 80 20 95/53 (67) 100 Room Air 11/10/17 23:15 77 20 103/64 (77) 100 Room Air 11/10/17 23:09 98.1 83 26 100/58 (72) 100 Nasal Cannula 2 11/10/17 18:57 101.2 98 22 113/64 (80) 99 11/10/17 17:10 (81) 11/10/17 16:12 101 18 127/58 (81) 98 Room Air I/O 11/10/17 11/10/17 11/10/17 11/11/17 11/11/17 11/11/17 07:00 15:00 23:00 07:00 15:00 23:00 Intake Total 350 ml 800 ml 380 ml Output Total 5 ml Balance 350 ml 795 ml 380 ml Intake Oral 380 ml IV Total 350 ml Other 800 ml Output Estimated Blood Loss 5 ml # Voids 1 Result Diagram: 11/11/17 1202 11/11/17 0728 Imaging Last Impressions Chest X-Ray 11/10/17 0949 Signed Impressions: Service Date/Time: Friday, November 10, 2017 10:55 - CONCLUSION: 1. No acute cardiopulmonary disease. Rayo Nelson MD Hand X-Ray 11/10/17 0000 Signed Impressions: Service Date/Time: Friday, November 10, 2017 13:32 - CONCLUSION: Soft tissue swelling distal soft first digit with tiny radiopaque foreign body. Sim Crow MD FACR Chest CT 11/10/17 0000 Signed Impressions: Service Date/Time: Friday, November 10, 2017 11:12 - CONCLUSION: Mild peribronchial thickening otherwise negative. There is no pleural effusion or consolidation. Sim Crow MD FACR Objective Remarks awake hayden lert, no acute distress anciteric IV line- left neck lungs- no rales regular rhythm, no murmur abdomen soft, nontender right UE- post op dressing in place LE- no edema skin- both lower extremities- with multiple circumscribed superficial wounds, dry ( per patient- days before draining pus) Procedures 11/09- incision and drainage right thumb pulp abscess A/P Problem List: (1) History of endocarditis ICD Code: Z86.79 - Personal history of other diseases of the circulatory system (2) IV drug abuse ICD Code: F19.10 - Other psychoactive substance abuse, uncomplicated (3) History of embolic stroke ICD Code: Z86.73 - Personal history of transient ischemic attack (TIA), and cerebral infarction without residual deficits (4) Tobacco abuse ICD Code: Z72.0 - Tobacco use (5) Noncompliance ICD Code: Z91.19 - Patient's noncompliance with other medical treatment and regimen (6) Skin abscess ICD Code: L02.91 - Cutaneous abscess, unspecified (7) Felon of finger of right hand ICD Code: L03.011 - Cellulitis of right finger Assessment and Plan 37 years old right handed female Right thumb abscess S/P I and D 11/10- + pus continue on IV antibiotics with vancomycin. DC Azactam ID consult antibiotic recommendation ff cultures- blood and fluid IV drug abuse with history of endocarditis continue on vancomycin Echo- shows no vegetations Tobacco abuse continue on NicoDerm Heroin abuse have benzodiazepines available for withdrawals DVT prophylaxis with Lovenox GI prophylaxis with Pepcid Withdrawal and pain control with pain meds as prescribed and benzodiazepines Dutch Dewey MD Nov 11, 2017 15:01
[2017-11-11] MEDS: VANCOMYCIN INJ 750 MG in SODIUM CHLOR 0.9% 250 ML INJ 250 ML IV SCH (15:12)
[2017-11-11] MEDS: ENOXAPARIN SODIUM 40 MG/0.4 ML SYRINGE SQ SCH (15:13)
--- NOTE | 2017-11-11 15:13 | ECHRPT ---
Indication: POSS SEPSIS R/O ENDOCARDITIS CONCLUSIONS Normal left ventricular size. Mild concentric left ventricular hypertrophy. The left ventricular systolic function is hyperdynamic with an estimated ejection fraction in the ra nge of 65- 70%. The left atrial size is moderately dilated. The right atrial size is [id number] dilated. A possible atrial level shunt is demonstrated by color flow Doppler interrogation, clinical correlat ion recommended. Mild mitral valve regurgitation. There is mild tricuspid valve regurgitation. The estimated pulmonary arterial pressure is 28.3 mmHg. Trivial pulmonary valve regurgitation. BP: 118 / 79 HR: 85 Rhythm: Sinus MEASUREMENTS (Male / Female) Normal Values Technical Quality:Fair 2D ECHO LV Diastolic Diameter PLAX 4.6 cm 4.2 - 5.9 / 3.9 - 5.3 cm LV Systolic Diameter PLAX 3.2 cm IVS Diastolic Thickness 1.1 cm 0.6 - 1.0 / 0.6 - 0.9 cm LVPW Diastolic Thickness 1.1 cm 0.6 - 1.0 / 0.6 - 0.9 cm LV Relative Wall Thickness 0.5 RV Internal Dim ED PLAX 2.4 cm LVOT Diameter 2.0 cm Aortic Root Diameter 2.5 cm LA Systolic Diameter LX 3.0 cm 3.0 - 4.0 / 2.7 - 3.8 cm M-MODE AV Cusp Separation MM 2.0 cm DOPPLER AV Peak Velocity 141.0 cm/s AV Peak Gradient 8.0 mmHg AV Mean Gradient 4.0 mmHg AV Velocity Time Integral 30.0 cm LVOT Peak Velocity 81.2 cm/s LVOT Peak Gradient 2.6 mmHg LVOT Velocity Time Integral 17.1 cm AV Area Cont Eq vti 1.8 cm AV Area Cont Eq pk 1.8 cm Mitral E Point Velocity 81.9 cm/s Mitral A Point Velocity 43.9 cm/s Mitral E to A Ratio 1.9 LV E' Lateral Velocity 13.9 cm/s Mitral E to LV E' Lateral Ratio 5.9 LV E' Septal Velocity 8.5 cm/s Mitral E to LV E' Septal Ratio 9.7 TR Peak Velocity 214.0 cm/s TR Peak Gradient 18.3 mmHg Right Atrial Pressure 10.0 mmHg Pulmonary Artery Systolic Pressu 28.3 mmHg Right Ventricular Systolic Press 28.3 mmHg FINDINGS LEFT VENTRICLE Normal left ventricular size. Mild concentric left ventricular hypertrophy. The left ventricular systolic function is hyperdynamic with an estimated ejection fraction in the ra nge of 65- 70%. RIGHT VENTRICLE Normal right ventricular size and systolic function. LEFT ATRIUM The left atrial size is moderately dilated. RIGHT ATRIUM The right atrial size is [id number] dilated. ATRIAL SEPTUM A possible atrial level shunt is demonstrated by color flow Doppler interrogation, clinical correlat ion recommended. AORTA The aortic root and proximal ascending aorta are normal in size on limited imaging. MITRAL VALVE Mild mitral valve regurgitation. AORTIC VALVE Trileaflet aortic valve. No aortic valve stenosis or regurgitation. TRICUSPID VALVE There is mild tricuspid valve regurgitation. The estimated pulmonary arterial pressure is 28.3 mmHg. PULMONARY VALVE Trivial pulmonary valve regurgitation. VESSELS The inferior vena cava is normal in size. PERICARDIUM No pericardial effusion. Elliott Mckenzie MD, FACC, [facility] [place] (Electronically Signed) Final Date:11 November 2017 15:13
--- NOTE | 2017-11-11 15:18 | MP ---
cc: Jorge L Cuevas MD DATE OF OPERATION: 11/10/2017 PREOPERATIVE DIAGNOSIS: Right thumb pulp abscess. POSTOPERATIVE DIAGNOSIS: Right thumb pulp abscess. PROCEDURE PERFORMED: Incision and drainage, right thumb pulp abscess. SURGEON: Jorge L Cuevas MD ANESTHESIA: General. ESTIMATED BLOOD LOSS: Minimal. TOURNIQUET TIME: 20 minutes at 250 mmHg. COMPLICATIONS: No complication. SPECIMEN: Was sent, one from the subcutaneous location and the second specimen from the polyp region, swab for culture and sensitivity. DISPOSITION: To the PACU stable. INDICATIONS FOR PROCEDURE: The patient is a 37-year-old female with history of IV drug abuse, presented with complaints of pain and swelling involving the right thumb for almost a week duration, worse for the past 1 day. She has a history of I and D of right thumb pulp abscess 4 years ago. On examination, she had tenderness over the hyponychium and over the pulp region of the thumb, which was exquisite and there was evidence of the thumb twice the size of the left thumb. X-ray showed evidence of old irregularity of the distal phalanx tuft from previous I and D of the pulp abscess. She had an elevated white count of 11.3 with shift of 76%. Clinically, she was diagnosed with right thumb pulp abscess and was consented for incision and drainage of the right thumb pulp. The patient was explained the risks and benefits of the procedure. DESCRIPTION OF PROCEDURE: The patient was brought to the operating room. Under general anesthesia, the right upper extremity was sterilely prepped and draped. Incision site was marked over the ulnar aspect of the pulp and lateral nail fold corresponding to the point of tenderness, measuring about 1.5 cm. After limb elevation, tourniquet was inflated to 250 mmHg. An incision was then made of the proposed incision site. There was evidence of a pocket of subcutaneous pus over the hyponychial region. Material sent for culture and sensitivity. The incision was deepened. Soft tissue dissection was carried out. pockets in the pulp was broken down. There was evidence of minimal purulence within the pulp region. Material sent for culture and sensitivity. The distal phalanx was probed and there was no evidence of softening of the distal phalanx and decision was made not to proceed with curettage of the bone. A thorough wash was given initially with normal saline mixed with hydrogen peroxide. This was then followed by normal saline mixed with irrigant. Packing of the polyp was carried out. Tourniquet was deflated. Tourniquet time was 20 minutes. The patient had good distal circulation after release of tourniquet. Skin was then loosely approximated using 4-0 nylon in a horizontal mattress in interrupted fashion. A bulky thumb dressing was applied which was held in place by soft roll and wrapped. The patient was recovered and sent to recovery room in stable condition. PLAN: Will continue with IV antibiotics, and follow up cultures and keep the limb elevated. Jorge L Cuevas MD SE/ABRAM , 11:05 PM , 11:30 PM MTDD
--- NOTE | 2017-11-11 15:56 | HHI.PR ---
Subjective Remarks complains of mild pain no fever resting comfortably Objective Vital Signs Date Time Temp Pulse Resp B/P (MAP) Pulse Ox O2 Delivery O2 Flow Rate FiO2 11/11/17 12:00 97.0 63 18 102/59 (73) 96 11/11/17 08:00 97.6 55 18 96/52 (67) 97 11/11/17 06:21 92/54 (67) 11/11/17 04:00 97.0 68 18 88/52 (64) 96 11/11/17 00:01 Nasal Cannula 2.00 11/11/17 00:00 97.8 84 19 125/67 (86) 96 11/10/17 23:45 80 20 95/53 (67) 100 Room Air 11/10/17 23:15 77 20 103/64 (77) 100 Room Air 11/10/17 23:09 98.1 83 26 100/58 (72) 100 Nasal Cannula 2 11/10/17 18:57 101.2 98 22 113/64 (80) 99 11/10/17 17:10 (81) 11/10/17 16:12 101 18 127/58 (81) 98 Room Air I/O 11/10/17 11/10/17 11/10/17 11/11/17 11/11/17 11/11/17 07:00 15:00 23:00 07:00 15:00 23:00 Intake Total 350 ml 800 ml 380 ml Output Total 5 ml Balance 350 ml 795 ml 380 ml Intake Oral 380 ml IV Total 350 ml Other 800 ml Output Estimated Blood Loss 5 ml # Voids 1 right thumb: dressing and packing in place decreased swelling noted intact distal circulation intact sensation Lab: white count normalized gram stain and cultures pending Result Diagram: 11/11/17 1202 11/11/17 0728 Assessment and Plan Assessment and Plan 37 year old female s/p I and D right thumb pulp abscess POD 1 Plan: packing pulled out a cm dry dressing applied limb elevation and range of motion exercises continue with iv antibiotics hand surgery will follow. Jorge L Cuevas MD Nov 11, 2017 15:56
[2017-11-11 17:10] LABS: HEMOGLOBIN A1C 5.1 % (4.3-6.0)
[2017-11-12] VITALS (8 sets, daily range): BP systolic 96–125; BP diastolic 59–82; PULSE 68–89; RESP 15–18; TEMP 96–99.4; O2SAT 97–100
[2017-11-12] MEDS ORDERED: PHARMACY ORDERED LAB ONE (01:45)
[2017-11-12] MEDS: VANCOMYCIN INJ 750 MG in SODIUM CHLOR 0.9% 250 ML INJ 250 ML IV SCH ×2 (03:00→13:48)
[2017-11-12 03:48] LABS: CREATININE 0.96 MG/DL (0.50-1.00); VANCOMYCIN TROUGH 8.6 MCG/ML (5.0-10.0)
[2017-11-12] MEDS: SODIUM CHLOR 0.9% 1000 ML INJ 1,000 ML IV SCH ×3 (04:23→21:41)
[2017-11-12] MEDS: DOCUSATE SODIUM 50 MG/SENNA 8.6 MG TAB PO SCH ×2 (08:30→21:41)
[2017-11-12] MEDS: NICOTINE 21 MG/24 HR PATCH T-DERMAL SCH (08:30)
[2017-11-12] MEDS: REMOVE OLD PATCH T-DERMAL SCH (08:30)
[2017-11-12] MEDS: FAMOTIDINE 20 MG TAB PO SCH ×2 (08:30→21:41)
[2017-11-12] MEDS: FOLIC ACID 1 MG TAB PO SCH (08:30)
[2017-11-12] MEDS: MULTIVITAMINS/MINERALS THERAPEUTIC TAB PO SCH (08:30)
[2017-11-12] MEDS: THIAMINE HCL 100 MG TAB PO SCH (08:30)
--- NOTE | 2017-11-12 08:30 | HHI.PR ---
Subjective Remarks awake and alert no pain complains Objective Vitals Vital Signs Date Time Temp Pulse Resp B/P (MAP) Pulse Ox O2 Delivery O2 Flow Rate FiO2 11/12/17 04:00 97.3 73 15 115/72 (86) 98 11/12/17 00:00 98.5 75 16 110/59 (76) 97 11/12/17 00:00 Room Air 11/11/17 20:26 97 21 11/11/17 20:00 Room Air 11/11/17 20:00 96.2 83 18 111/59 (76) 98 11/11/17 16:00 97.5 67 18 93/51 (65) 97 11/11/17 12:00 97.0 63 18 102/59 (73) 96 I/O 11/11/17 11/11/17 11/11/17 11/12/17 11/12/17 11/12/17 06:59 14:59 22:59 06:59 14:59 22:59 Intake Total 380 ml 480 ml 1494.5 ml Balance 380 ml 480 ml 1494.5 ml Intake Oral 380 ml 480 ml 450 ml IV Total 1044.5 ml # Voids 2 Result Diagram: 11/11/17 1202 11/12/17 0255 Imaging Last Impressions Chest X-Ray 11/10/17 0949 Signed Impressions: Service Date/Time: Friday, November 10, 2017 10:55 - CONCLUSION: 1. No acute cardiopulmonary disease. Rayo Nelson MD Hand X-Ray 11/10/17 0000 Signed Impressions: Service Date/Time: Friday, November 10, 2017 13:32 - CONCLUSION: Soft tissue swelling distal soft first digit with tiny radiopaque foreign body. Sim Crow MD FACR Chest CT 11/10/17 0000 Signed Impressions: Service Date/Time: Friday, November 10, 2017 11:12 - CONCLUSION: Mild peribronchial thickening otherwise negative. There is no pleural effusion or consolidation. Sim Crow MD FACR Objective Remarks awake and alert, no acute distress anicteric bridge of nose- superficial abrasion IV line- left neck lungs- no rales regular rhythm, no murmur abdomen soft, nontender right UE- post op dressing in place-- right thumb swelling, sutures intact, dry, mild erythema LE- no edema skin- both lower extremities- with multiple circumscribed superficial wounds, dry ( per patient- days before draining pus) Procedures 11/09- incision and drainage right thumb pulp abscess A/P Problem List: (1) History of endocarditis ICD Code: Z86.79 - Personal history of other diseases of the circulatory system (2) IV drug abuse ICD Code: F19.10 - Other psychoactive substance abuse, uncomplicated (3) History of embolic stroke ICD Code: Z86.73 - Personal history of transient ischemic attack (TIA), and cerebral infarction without residual deficits (4) Tobacco abuse ICD Code: Z72.0 - Tobacco use (5) Noncompliance ICD Code: Z91.19 - Patient's noncompliance with other medical treatment and regimen (6) Skin abscess ICD Code: L02.91 - Cutaneous abscess, unspecified (7) Felon of finger of right hand ICD Code: L03.011 - Cellulitis of right finger Assessment and Plan 37 years old right handed female Right thumb abscess S/P I and D 11/10- + pus Skin with multiple old lesions healed- per patient hs of abscesses continue on IV antibiotics with vancomycin. DC Azactam ID consult antibiotic recommendation ff cultures- blood and fluid IV drug abuse with history of endocarditis continue on vancomycin Echo- shows no vegetations Tobacco abuse continue on NicoDerm Heroin abuse have benzodiazepines available for withdrawals DVT prophylaxis with Lovenox GI prophylaxis with Pepcid Up and ambulating encourage Dutch Dewey MD Nov 12, 2017 08:30
[2017-11-12] MEDS: SODIUM CHLORIDE 0.9% FLUSH 10 ML FLUSH IV FLUSH SCH ×2 (08:43→21:41)
[2017-11-12] MEDS: VANCOMYCIN 1,000 MG/NS 250 ML IV SCH ×2 (13:37)
[2017-11-12] MEDS: ENOXAPARIN SODIUM 40 MG/0.4 ML SYRINGE SQ SCH (13:47)
--- NOTE | 2017-11-12 18:27 | HHI.PR ---
Addendum to Inpatient Note Additional Information Pt seen earliuer today around 1400 Full note to follow Chayo Mckenzie MD Nov 12, 2017 18:27
--- NOTE | 2017-11-12 18:28 | PD.ID.CON ---
History of Present Illness Service ID Consult Requested By Dr Norton Reason for Consult endocarditis, multiple abscess, IVDU Primary Care Physician No Primary Care Physician Diagnoses: History of Present Illness 37 yo female with IV heroin use and h/o CVA presented wih R thumb pain swelling she was diagnosed by Right thumb pulp abscess. sp Incision and drainage, right thumb pulp abscess. 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 Past Surgical History Tubal ligation section Active Ordered Medications Medications where reviewed in EMR Antibiotics Include: vancomycin Family History reviewed non contributory to current ID issue Social History Tobacco abuse IV drug abuse with heroin no ETOH Physical Exam Vital Signs Vital Signs Date Time Temp Pulse Resp B/P (MAP) Pulse Ox O2 Delivery O2 Flow Rate FiO2 11/12/17 16:00 96.9 89 18 123/71 (88) 98 11/12/17 12:00 96.6 71 18 105/79 (88) 99 11/12/17 11:00 96.0 86 18 96/63 (74) 100 11/12/17 11:00 96.6 71 18 105/79 (88) 99 11/12/17 10:41 21 11/12/17 08:20 98.6 84 18 125/82 (96) 98 11/12/17 04:00 97.3 73 15 115/72 (86) 98 11/12/17 00:00 98.5 75 16 110/59 (76) 97 11/12/17 00:00 Room Air 11/11/17 20:26 97 21 11/11/17 20:00 Room Air 11/11/17 20:00 96.2 83 18 111/59 (76) 98 Physical Exam CONSTITUTIONAL/GENERAL: This is an adequately nourished patient, in no apparent distress. TUBES/LINES/DRAINS: SKIN: Multiple scattred crusted lesions cw healing abscesses. Ecchymoses on upper extremities. No wounds seen anteriorly. Skin temperature appropriate. Not diaphoretic. HEAD: Atraumatic. Normocephalic. EYES: Pupils equal and round and reactive. Extraocular motions intact. No scleral icterus. No injection or drainage. Fundi not examined. ENT: Hearing grossly normal. Nose without bleeding or purulent drainage. Throat without visible erythema, exudates, masses, or lesions. NECK: Trachea midline. Supple, nontender. No palpable thyroid enlargement or nodularity. CARDIOVASCULAR: Regular rate and rhythm without murmurs, gallops, or rubs. No JVD. Peripheral pulses symmetric. RESPIRATORY/CHEST: Symmetric, unlabored respirations. Clear to auscultation. Breath sounds equal bilaterally. No wheezes, rales, or rhonchi. GASTROINTESTINAL: Abdomen soft, non-tender, nondistended. No hepato-splenomegaly , or palpable masses. No guarding. Bowel sounds present. MUSCULOSKELETAL: Extremities without clubbing, cyanosis, or edema. No joint tenderness or effusion noted. No calf tenderness. No mottling or clubbing. R hasnd dressing in place LYMPHATICS: No palpable cervical or supraclavicular adenopathy. NEUROLOGICAL: Awake and alert. Motor and sensory grossly within normal limits. Follows commands. Clear speech. Moves all extremities. PSYCHIATRIC: No obvious anxiety/depression. no apparent hallucinations or other psychotic thought process. Laboratory Laboratory Tests Test 11/12/17 02:55 Creatinine 0.96 Estimat Glomerular Filtration Rate 65 Vancomycin Level Trough 8.6 Date/Time Source Procedure Growth Status 11/10/17 10:50 Blood Peripheral Aerobic Blood Culture - Preliminary NO GROWTH IN 2 DAYS Resulted 11/10/17 10:50 Blood Peripheral Anaerobic Blood Culture - Preliminary NO GROWTH IN 2 DAYS Resulted 11/10/17 22:41 Wound Finger Fungal Smear - Final NO FUNGAL ELEMENTS SEEN. Resulted 11/10/17 22:41 Wound Finger Fungal Culture Pending Resulted Result Diagram: 11/11/17 1202 11/12/17 0255 Imaging Last Impressions Chest X-Ray 11/10/17 0949 Signed Impressions: Service Date/Time: Friday, November 10, 2017 10:55 - CONCLUSION: 1. No acute cardiopulmonary disease. Rayo Nelson MD Hand X-Ray 11/10/17 0000 Signed Impressions: Service Date/Time: Friday, November 10, 2017 13:32 - CONCLUSION: Soft tissue swelling distal soft first digit with tiny radiopaque foreign body. Sim Crow MD FACR Chest CT 11/10/17 0000 Signed Impressions: Service Date/Time: Friday, November 10, 2017 11:12 - CONCLUSION: Mild peribronchial thickening otherwise negative. There is no pleural effusion or consolidation. Sim Crow MD FACR Assessment and Plan Assessment and Plan Right thumb pulp abscess, MSSA Sp I+D Not enough e/o endopcarditis will need BRIDGET if multiple positive blood clx cont vancomycin further rec's per clx results Chayo Mckenzie MD Nov 12, 2017 18:28
--- NOTE | 2017-11-12 19:06 | HHI.PR ---
Subjective Remarks complains of mild pain no fever Objective Vital Signs Date Time Temp Pulse Resp B/P (MAP) Pulse Ox O2 Delivery O2 Flow Rate FiO2 11/12/17 16:00 96.9 89 18 123/71 (88) 98 11/12/17 12:00 96.6 71 18 105/79 (88) 99 11/12/17 11:00 96.0 86 18 96/63 (74) 100 11/12/17 11:00 96.6 71 18 105/79 (88) 99 11/12/17 10:41 21 11/12/17 08:20 98.6 84 18 125/82 (96) 98 11/12/17 04:00 97.3 73 15 115/72 (86) 98 11/12/17 00:00 98.5 75 16 110/59 (76) 97 11/12/17 00:00 Room Air 11/11/17 20:26 97 21 11/11/17 20:00 Room Air 11/11/17 20:00 96.2 83 18 111/59 (76) 98 I/O 11/11/17 11/11/17 11/11/17 11/12/17 11/12/17 11/12/17 07:00 15:00 23:00 07:00 15:00 23:00 Intake Total 380 ml 1000 ml 830 ml 1494.5 ml 230 ml 1013 ml Balance 380 ml 1000 ml 830 ml 1494.5 ml 230 ml 1013 ml Intake Oral 380 ml 480 ml 450 ml IV Total 1000 ml 350 ml 1044.5 ml 230 ml 1013 ml # Voids 2 examination of the right thumb: packing in place surrounding swelling noted minimal drainage tenderness noted over the region intact sensation and circulation cultures; [facility] Result Diagram: 11/11/17 1202 11/12/17 0255 Assessment and Plan Assessment and Plan 37 year old female s/p I and D right thumb pulp abscess POD 1 Plan: packing pulled out. dry dressing applied limb elevation and range of motion exercises continue with iv antibiotics based on ID recommendations hand surgery will follow. Jorge L Cuevas MD Nov 12, 2017 19:06
[2017-11-13] MEDS: VANCOMYCIN 1,000 MG/NS 250 ML IV SCH ×4 (02:46→13:08)
[2017-11-13 08:00] VITALS: BP 114/69; PULSE 72; RESP 18; TEMP 98; O2SAT 96
[2017-11-13] MEDS: MULTIVITAMINS/MINERALS THERAPEUTIC TAB PO SCH (08:21)
[2017-11-13] MEDS: FAMOTIDINE 20 MG TAB PO SCH (08:21)
[2017-11-13] MEDS: NICOTINE 21 MG/24 HR PATCH T-DERMAL SCH (08:21)
[2017-11-13] MEDS: THIAMINE HCL 100 MG TAB PO SCH (08:21)
[2017-11-13] MEDS: REMOVE OLD PATCH T-DERMAL SCH (08:21)
[2017-11-13] MEDS: FOLIC ACID 1 MG TAB PO SCH (08:21)
[2017-11-13] MEDS: SODIUM CHLORIDE 0.9% FLUSH 10 ML FLUSH IV FLUSH SCH (08:21)
[2017-11-13] MEDS: DOCUSATE SODIUM 50 MG/SENNA 8.6 MG TAB PO SCH (08:21)
[2017-11-13] MEDS: SODIUM CHLOR 0.9% 1000 ML INJ 1,000 ML IV SCH ×2 (08:22→17:11)
[2017-11-13 12:00] VITALS: BP 124/78; PULSE 76; RESP 18; TEMP 98.3; O2SAT 98
[2017-11-13] MEDS: ENOXAPARIN SODIUM 40 MG/0.4 ML SYRINGE SQ SCH (13:08)
--- NOTE | 2017-11-13 15:44 | HHI.PR ---
Subjective Remarks Patient walking in the hallway She requested place on Ativan, she states she has been on it and she stopped in April Complain of pain in her thumb She is on antibiotic per ID Objective Vitals Vital Signs Date Time Temp Pulse Resp B/P (MAP) Pulse Ox O2 Delivery O2 Flow Rate FiO2 11/13/17 12:00 98.3 76 18 124/78 (93) 98 11/13/17 08:00 98.0 72 18 114/69 (84) 96 11/12/17 23:59 97.9 68 16 112/68 (83) 98 11/12/17 20:00 97.0 76 16 110/68 (82) 97 11/12/17 16:00 96.9 89 18 123/71 (88) 98 I/O 11/12/17 11/12/17 11/12/17 11/13/17 11/13/17 11/13/17 07:00 15:00 23:00 07:00 15:00 23:00 Intake Total 1494.5 ml 230 ml 2690 ml 1152 ml 100 ml Balance 1494.5 ml 230 ml 2690 ml 1152 ml 100 ml Intake Oral 450 ml 1440 ml 2 ml IV Total 1044.5 ml 230 ml 1250 ml 1150 ml 100 ml # Voids 2 5 2 Result Diagram: 11/11/17 1202 11/12/17 0255 Objective Remarks GENERAL: This is a well-nourished, well-developed patient, in no apparent distress. SKIN: No rashes, warm and dry HEAD: Atraumatic. Normocephalic. EYES: PERRLA . No scleral icterus. ENT: No bleeding, or drainage, Airway patent. NECK: Trachea midline. Supple CARDIOVASCULAR: RRR, no gallops, or rubs. RESPIRATORY: Fair air entry bilaterally. No W, R, or R GASTROINTESTINAL: Abdomen soft, non-tender, nondistended. Positive bowel sounds MUSCULOSKELETAL: Right hand and thumb in gauze NEUROLOGICAL: Awake and alert. Moves all extremity. Normal speech.no focal neurological deficit Procedures 11/09- incision and drainage right thumb pulp abscess A/P Problem List: (1) History of endocarditis ICD Code: Z86.79 - Personal history of other diseases of the circulatory system (2) IV drug abuse ICD Code: F19.10 - Other psychoactive substance abuse, uncomplicated (3) History of embolic stroke ICD Code: Z86.73 - Personal history of transient ischemic attack (TIA), and cerebral infarction without residual deficits (4) Tobacco abuse ICD Code: Z72.0 - Tobacco use (5) Noncompliance ICD Code: Z91.19 - Patient's noncompliance with other medical treatment and regimen (6) Skin abscess ICD Code: L02.91 - Cutaneous abscess, unspecified (7) Felon of finger of right hand ICD Code: L03.011 - Cellulitis of right finger Assessment and Plan 37 year old female s/p I and D right thumb pulp abscess POD 1 Plan: 11/13: Continue IV antibiotic, follow ID, questionable need for BRIDGET rule out endocarditis per ID packing pulled out. dry dressing applied limb elevation and range of motion exercises continue with iv antibiotics per ID recommendation, questionable endocarditis, defer decision for need of BRIDGET per ID hand surgery will follow. Sandeep Rea MD Nov 13, 2017 15:44
[2017-11-13 16:00] VITALS: BP 128/68; PULSE 77; RESP 18; TEMP 99.8; O2SAT 96
--- NOTE | 2017-11-13 18:21 | HHI.PR ---
Subjective Remarks complains of mild pain no fever complains of swelling of the hands and feet denies any shortness of breath Objective Vital Signs Date Time Temp Pulse Resp B/P (MAP) Pulse Ox O2 Delivery O2 Flow Rate FiO2 11/13/17 16:00 99.8 77 18 128/68 (88) 96 11/13/17 12:00 98.3 76 18 124/78 (93) 98 11/13/17 08:00 98.0 72 18 114/69 (84) 96 11/12/17 23:59 97.9 68 16 112/68 (83) 98 11/12/17 20:00 97.0 76 16 110/68 (82) 97 I/O 11/12/17 11/12/17 11/12/17 11/13/17 11/13/17 11/13/17 07:00 15:00 23:00 07:00 15:00 23:00 Intake Total 1494.5 ml 230 ml 2690 ml 1152 ml 460 ml 1000 ml Balance 1494.5 ml 230 ml 2690 ml 1152 ml 460 ml 1000 ml Intake Oral 450 ml 1440 ml 2 ml 360 ml IV Total 1044.5 ml 230 ml 1250 ml 1150 ml 100 ml 1000 ml # Voids 2 5 2 5 # Bowel Movements 1 examination of the right thumb: decreased swelling no drainage tenderness noted swelling of both hands noted cultures: MSSA Result Diagram: 11/11/17 1202 11/12/17 0255 Assessment and Plan Assessment and Plan 37 year old female s/p I and D right thumb pulp abscess POD 2 Plan: dry dressing applied limb elevation and range of motion exercises continue with iv antibiotics based on ID recommendations Patient has bilateral hand edema, need for workup. hand surgery will follow. Jorge L Cuevas MD Nov 13, 2017 18:21
[2017-11-14] MEDS ORDERED: PHARMACY ORDERED LAB ONE (02:45)
--- NOTE | 2017-11-17 19:58 | HHI.DS ---
Discharge Summary Admission Date Nov 10, 2017 at 12:25 Discharge Date: Nov 12, 2017 Admitting Diagnosis Multiple Cellulitis, Possible Bacteremia, Possible Endocarditis. (1) History of endocarditis ICD Code: Z86.79 - Personal history of other diseases of the circulatory system Diagnosis: Secondary (2) IV drug abuse ICD Code: F19.10 - Other psychoactive substance abuse, uncomplicated Diagnosis: Principal (3) History of embolic stroke ICD Code: Z86.73 - Personal history of transient ischemic attack (TIA), and cerebral infarction without residual deficits Diagnosis: Secondary (4) Tobacco abuse ICD Code: Z72.0 - Tobacco use Diagnosis: Secondary (5) Noncompliance ICD Code: Z91.19 - Patient's noncompliance with other medical treatment and regimen Diagnosis: Secondary (6) Skin abscess ICD Code: L02.91 - Cutaneous abscess, unspecified Diagnosis: Principal (7) Felon of finger of right hand ICD Code: L03.011 - Cellulitis of right finger Diagnosis: Principal Procedures 11/09- incision and drainage right thumb pulp abscess Brief History - From Admission Patient is a 37-year-old female. Presented emergency department for evaluation multiple areas of cellulitis and abscess. She has multiple areas on her left leg as well as her right thumb. Been going on for probably a month or so. She states that the pain became unbearable today and she decided to come into the emergency department for it. Does admit to IV heroin use states she started again a couple weeks ago because of stresses in her life. She states that she is very concerned because she has a history of endocarditis. Denies any fevers denies any chest pain or shortness of breath has the right thumb being swollen which appears to be a felon We will get an echocardiogram will start on vancomycin and is Azactam and consult hand surgery PE at Discharge GENERAL: This is a well-nourished, well-developed patient, in no apparent distress. SKIN: No rashes, warm and dry HEAD: Atraumatic. Normocephalic. EYES: PERRLA . No scleral icterus. ENT: No bleeding, or drainage, Airway patent. NECK: Trachea midline. Supple CARDIOVASCULAR: RRR, no gallops, or rubs. RESPIRATORY: Fair air entry bilaterally. No W, R, or R GASTROINTESTINAL: Abdomen soft, non-tender, nondistended. Positive bowel sounds MUSCULOSKELETAL: Right hand and thumb in gauze NEUROLOGICAL: Awake and alert. Moves all extremity. Normal speech.no focal neurological deficit Hospital Course 37 years old female with history of endocarditis IV drug abuse embolic stroke noncompliance admitted with right finger abscess, hand surgeon consulted, ID as well, patient had I&D's placed on IV antibiotic however on 11/12 patient decided to go AMA Pt Condition on Discharge: Stable Discharge Disposition: Discharge Home Discharge Time: <= 30 minutes (Patient left AMA NOT as a regular home discharge ) Sandeep Rea MD Nov 17, 2017 19:58
== END 2017-11-13 21:06 | disposition left against medical advice (07) | DRG 580 ==
LOC: NEPE 03:42 → NEDA 12:25 → NEDH 15:48 → HOCA 17:30
PROVIDERS: ADMIT Hospitalist; ATTEND Hospitalist
PROC: 0J9J0ZZ Drainage of Right Hand Subcutaneous Tissue and Fascia, Open Approach (ICD-10-PCS; principal; 2017-11-10 22:08)
DX: L02.511 Cutaneous abscess of right hand (principal); L03.116 Cellulitis of left lower limb; R79.82 Elevated C-reactive protein (CRP); B95.61 Methicillin susceptible Staphylococcus aureus infection as the cause of diseases classified elsewhere; L03.011 Cellulitis of right finger; F11.10 Opioid abuse, uncomplicated; F17.210 Nicotine dependence, cigarettes, uncomplicated; Z86.73 Personal history of transient ischemic attack (TIA), and cerebral infarction without residual deficits; Z88.0 Allergy status to penicillin; Z91.19 Patient's noncompliance with other medical treatment and regimen
CPT/HCPCS: 71045; 71250; 73130; 80053; 80202; 81001; 82550; 82565; 82948; 83036; 83605; 83735; 84100; 84439; 84443; 84484; 85025; 85610; 85652; 85730; 86140; 86403; 87015; 87040; 87070; 87102; 87116; 87147; 87186; 87205; 87206; 93005; 93306; 96365; 96375; J1650; J2060; J2250; J2270; J3010; J3370; J7030; J7050

== ENCOUNTER 2017-11-16 12:45 | Emergency (ER) | payer SELFPAY ==
[~2017-11-16] VITALS: Ht 157.5 cm; Wt 50.0 kg
[2017-11-16] MEDS ORDERED: IOHEXOL 350 MG/ML 10 ML VIAL (for RAD DIAG) IVCONTRAST ONE (12:46)
[2017-11-16 12:52] VITALS: BP 144/84; PULSE 87; RESP 18; TEMP 98.7; O2SAT 100
[2017-11-16 14:16] LABS: AUTOMATED NEUTROPHIL # 5.8 TH/MM3 (1.8-7.7); BASOPHIL # 0.1 TH/MM3 (0-0.2); BASOPHIL % 0.7 % (0.0-2.0); EOSINOPHIL # 0.2 TH/MM3 (0-0.4); EOSINOPHIL % 1.9 % (0.0-4.0); HEMATOCRIT 40.8 % (35.0-46.0); HEMOGLOBIN 13.9 GM/DL (11.6-15.3); LYMPH % 25.6 % (9.0-44.0); LYMPHOCYTE # 2.3 TH/MM3 (1.0-4.8); MEAN CELL VOLUME 87.7 FL (80.0-100.0); MEAN CORPUSCULAR HEMOGLOBIN 29.9 PG (27.0-34.0); MEAN PLATELET VOLUME 7.5 FL (7.0-11.0); MONO % 6.4 % (0.0-8.0); MONOCYTE # 0.6 TH/MM3 (0-0.9); NEUT % 65.4 % (16.0-70.0); PLATELET COUNT 448 TH/MM3 (150-450); RED BLOOD COUNT 4.65 MIL/MM3 (4.00-5.30); RED CELL DISTRIBUTION WIDTH 13.2 % (11.6-17.2); WHITE BLOOD COUNT 8.9 TH/MM3 (4.0-11.0)
[2017-11-16 14:23] LABS: PROTHROMBIN TIME - PATIENT 9.7 SEC (9.8-11.6)
[2017-11-16 14:31] LABS: ALBUMIN 3.1 GM/DL (3.4-5.0); AST (GOT) 46 U/L (15-37); BICARBONATE 27.2 MEQ/L (21.0-32.0); BLOOD UREA NITROGEN 14 MG/DL (7-18); CALCIUM 8.8 MG/DL (8.5-10.1); CHLORIDE 105 MEQ/L (98-107); CREATININE 1.12 MG/DL (0.50-1.00); GLOMERULAR FILTRATION RATE 55 ML/MIN (>89); GLUCOSE,RANDOM 100 MG/DL (74-106); SODIUM (NA) 140 MEQ/L (136-145)
[2017-11-16 14:34] LABS: ALKALINE PHOSPHATASE 81 U/L (45-117); ALT (GPT) 47 U/L (10-53); TOTAL BILIRUBIN ADULT 0.2 MG/DL (0.2-1.0); TOTAL PROTEIN 7.8 GM/DL (6.4-8.2)
--- NOTE | 2017-11-16 14:54 | PD ---
HPI Chief Complaint: Skin Problem Time Seen by Provider: 14:20 Travel History International Travel<30 days: No Contact w/Intl Traveler<30days: No Traveled to known affect area: No History of Present Illness HPI 37-year-old female with history of IV drug use and multiple abscesses presents to the emergency department complaining of a dental abscess that has been present for approximately 2 days. She points to the left incisor as the location of pain. patient states her pain is moderate to severe and radiates to the ear. Denies any drooling or trouble swallowing. She denies any unusual taste in the mouth. Says she has not used any IV drugs in approximately 10 days. Says she left AMA last week after a right thumb abscess. Says she received vancomycin "all week". She was not discharged with any antibiotics. She denies fever, chills, chest pain, shortness of breath. PFSH Past Medical History Arthritis: No Autoimmune Disease: No Anxiety: Yes Depression: No Heart Rhythm Problems: No Cancer: No Cardiovascular Problems: No High Cholesterol: No Chest Pain: Yes Congestive Heart Failure: No Cerebrovascular Accident: No Diminished Hearing: No Endocrine: No Genitourinary: No Immune Disorder: No Musculoskeletal: Yes Neurologic: Yes Psychiatric: Yes Reproductive: No Respiratory: No Migraines: No Tetanus Vaccination: > 5 Years ?: Not Tubal Ligation: Yes Past Surgical History Abdominal Surgery: No AICD: No Arteriovenous Shunt: No Cardiac Surgery: No Section: Yes Ear Surgery: No Endocrine Surgery: No Eye Surgery: No Genitourinary Surgery: No Gynecologic Surgery: Yes (2 cecessarian sections. ) Insulin Pump: No Joint Replacement: No Oral Surgery: No Pacemaker: No Thoracic Surgery: No Other Surgery: Yes Social History Alcohol Use: No Tobacco Use: Yes (PPD) Substance Use: Yes (Heroin, cocaine ) Allergies-Medications (Allergen,Severity, Reaction): Coded Allergies: penicillin G (Verified Allergy, Severe, hives, 11/10/17) Reported Meds & Prescriptions Reported Meds & Active Scripts Active Chlorhexidine Gluconate (Mouth) Liq (Chlorhexidine Gluconate) 0.12% Soln 15 Ml SWISH-SPIT BID 5 Days Magic Mouthwash Pediatric/Adult Liq (Lidocaine/Diphenhydr/Alum/Mg/Simeth) 60 Ml Susp 5 Ml SWISH-SWAL ACHS 10 Days Each 5mL contains: Diphenydramine 4.5mg, Viscous Lidocaine 2% 10mg, Maalox Advanced Regular Strength 2.7ml Clindamycin (Clindamycin HCl) 300 Mg Cap 300 Mg PO TID 7 Days Hydrocodone-Acetaminophen 5-325 mg Tab 1 Tab PO Q6H PRN Cleocin (Clindamycin HCl) 150 Mg Cap 300 Mg PO Q6H Miconazole 7 Vaginal Supp 100 Mg Supp 100 Mg VAGINAL HS Ibuprofen 800 Mg Tab 800 Mg PO Q6HR PRN Reported Abilify Maintena Dual Chamber Inj (Aripiprazole) 400 Mg Inj 400 Mg IM ONCE Review of Systems Except as stated in HPI: all other systems reviewed are Neg Physical Exam Narrative GENERAL: Well-developed, well-nourished anxious, restless SKIN: Focused skin assessment warm/dry. HEAD: Atraumatic. Normocephalic. EYES: Pupils equal and round. No scleral icterus. No injection or drainage. ENT: No nasal bleeding or discharge. Mucous membranes pink and moist. Left premolar and incisor gingiva- small lesion with scant fluctuance, puncta vs ulcer over area. Unable to express fluid. Left preauricular lymphadenopathy NECK: Trachea midline. No JVD. Tender to palpation left anterior neck CARDIOVASCULAR: Regular rate and rhythm. No murmur appreciated. RESPIRATORY: No accessory muscle use. Clear to auscultation. Breath sounds equal bilaterally. GASTROINTESTINAL: Abdomen soft, non-tender, nondistended. Hepatic and splenic margins not palpable. No CVA tenderness MUSCULOSKELETAL: No obvious deformities. No clubbing. No cyanosis. No edema. NEUROLOGICAL: Awake and alert. No obvious cranial nerve deficits. Motor grossly within normal limits. Normal speech. PSYCHIATRIC: Appropriate mood and affect; insight and judgment normal. Data Data Last Documented VS Vital Signs Date Time Temp Pulse Resp B/P (MAP) Pulse Ox O2 Delivery O2 Flow Rate FiO2 11/16/17 12:52 98.7 87 18 144/84 (104) 100 Orders Orders Complete Blood Count With Diff (11/16/17 12:55) Comprehensive Metabolic Panel (11/16/17 12:55) Prothrombin Time / Inr (Pt) (11/16/17 12:55) Act Partial Throm Time (Ptt) (11/16/17 12:55) Ct Facial Bones W Iv Contrast (11/16/17 ) Clindamycin Inj (Cleocin Inj) (11/16/17 15:00) Iohexol 350 Inj (Omnipaque 350 Inj) (11/16/17 12:46) Ed Discharge Order (11/16/17 16:24) Labs Laboratory Tests Test 11/16/17 13:35 White Blood Count 8.9 TH/MM3 Red Blood Count 4.65 MIL/MM3 Hemoglobin 13.9 GM/DL Hematocrit 40.8 % Mean Corpuscular Volume 87.7 FL Mean Corpuscular Hemoglobin 29.9 PG Mean Corpuscular Hemoglobin Concent 34.0 % Red Cell Distribution Width 13.2 % Platelet Count 448 TH/MM3 Mean Platelet Volume 7.5 FL Neutrophils (%) (Auto) 65.4 % Lymphocytes (%) (Auto) 25.6 % Monocytes (%) (Auto) 6.4 % Eosinophils (%) (Auto) 1.9 % Basophils (%) (Auto) 0.7 % Neutrophils # (Auto) 5.8 TH/MM3 Lymphocytes # (Auto) 2.3 TH/MM3 Monocytes # (Auto) 0.6 TH/MM3 Eosinophils # (Auto) 0.2 TH/MM3 Basophils # (Auto) 0.1 TH/MM3 CBC Comment DIFF FINAL Differential Comment Prothrombin Time 9.7 SEC Prothromb Time International Ratio 1.0 RATIO Activated Partial Thromboplast Time 23.8 SEC Blood Urea Nitrogen 14 MG/DL Creatinine 1.12 MG/DL Random Glucose 100 MG/DL Total Protein 7.8 GM/DL Albumin 3.1 GM/DL Calcium Level 8.8 MG/DL Alkaline Phosphatase 81 U/L Aspartate Amino Transf (AST/SGOT) 46 U/L Alanine Aminotransferase (ALT/SGPT) 47 U/L Total Bilirubin 0.2 MG/DL Sodium Level 140 MEQ/L Potassium Level 3.9 MEQ/L Chloride Level 105 MEQ/L Carbon Dioxide Level 27.2 MEQ/L Anion Gap 8 MEQ/L Estimat Glomerular Filtration Rate 55 ML/MIN MDM Medical Decision Making Medical Screen Exam Complete: Yes Emergency Medical Condition: Yes Differential Diagnosis Dental infection, abscess, tooth fracture Narrative Course 37-year-old female with history of IV drug use and multiple abscesses presents emergency department complaining of left incisor gingival pain for approximately 2 days. Vital signs are stable. Labs are stable. No leukocytosis present. Mild elevation of creatinine, likely from dehydration and poor nutrition. Clindamycin [address] facial bones with IV contrast ordered as patient does have an extensive history of abscesses. Fortunately, this was negative. An incidental thyroid nodule was found. Advised patient to follow-up as an outpatient. Patient will receive clindamycin, Magic mouthwash, and chlorhexidine rinse. I strongly advised patient to at the very least get the clindamycin. Tylenol or Motrin per package instructions. Return to the emergency room for worsening or persistent symptoms. Diagnosis Primary Impression: Dental infection Additional Impression: Thyroid nodule Referrals: Dentist Additional Instructions: Follow-up with the dentist as discussed. Follow-up with a primary care physician. Avoid IV drug use or other illicit drugs prevent complications. I recommend follow up of a thyroid nodule that was found on imaging today. As discussed, I highly recommend you take your oral antibiotics but the mouth rinses will help reduce infection and pain in the mouth. Scripts Chlorhexidine Gluconate (Mouth) Liq (Chlorhexidine Gluconate (Mouth) Liq) 0.12% Soln 15 ML SWISH-SPIT BID for Infection for 5 Days, #150 ML 0 Refills Prov: Thony White MD 11/16/17 [id number]-Tcv-Alum-Simeth Liq (Magic Mouthwash Pediatric/Adult Liq) 60 Ml Susp 5 ML SWISH-SWAL ACHS for Pain Management for 10 Days, #60 ML 0 Refills Each 5mL contains: Diphenydramine 4.5mg, Viscous Lidocaine 2% 10mg, Maalox Advanced Regular Strength 2.7ml Prov: Thony White MD 11/16/17 Clindamycin (Clindamycin) 300 Mg Cap 300 MG PO TID for Infection for 7 Days, #21 CAP 0 Refills Prov: Thony White MD 11/16/17 Disposition: 01 DISCHARGE HOME Condition: Stable Gisele Duong Nov 16, 2017 14:53
[2017-11-16] MEDS ORDERED: CLINDAMYCIN PHOS 600 MG/4 ML VIAL IM ONE (15:00)
--- NOTE | 2017-11-16 16:13 | RADRPT ---
EXAM DATE/TIME: 11/16/2017 15:31 [facility] COMPARISON: No previous studies available for comparison. INDICATIONS : Left dental abscess. IV CONTRAST: 72 cc Omnipaque 350 (iohexol) IV RADIATION DOSE: 29.28 CTDIvol (mGy) MEDICAL HISTORY : Pancreatitis. SURGICAL HISTORY : Tubal ligation. Hysterectomy. ENCOUNTER: Initial ACUITY: 3 days PAIN SCALE: 7/10 LOCATION: Left facial TECHNIQUE: Volumetric scanning of the facial bones was performed. Using automated exposure control and adjustme nt of the mA and/or kV according to patient size, radiation dose was kept as low as reasonably achiev able to obtain optimal diagnostic quality images. DICOM format image data is available electronicall y for review and comparison. FINDINGS: ORBITS: The orbital and infraorbital osseous structures are intact. The retroconal structures have a normal configuration. No radiopaque foreign bodies are seen. NASAL BONE: The nasal bone and maxillary spine are intact ZYGOMATIC ARCHES: Symmetric without evidence of fracture. SINUSES: The maxillary, ethmoid and frontal sinuses are intact. No air-fluid levels seen. NASAL CAVITY: The nasal septum is intact and midline. The lacrimal ducts are intact. SOFT TISSUES: No radiopaque foreign bodies seen. No soft-tissue swelling is seen. INTRACRANIAL: No intracranial air seen. CRIBIFORM PLATE: Grossly intact. A 7 mm low-density nodule is partially seen involving the left lobe of the thyroid. CONCLUSION: 1. Small left thyroid nodule. Otherwise, unremarkable exam. Rc Sinclair Jr., MD on November 16, 2017 at 16:07 Board Certified Radiologist. This report was verified electronically.
[2017-11-16] MEDS ORDERED: CLIN300C5 PO (16:19)
[2017-11-16] MEDS ORDERED: CHLO.12%30 SWISH-SPIT (16:22)
[2017-11-16] MEDS ORDERED: MAGICPED SWISH-SWAL (16:22)
== END 2017-11-16 17:41 | disposition home or self-care (01) ==
LOC: NED 12:45 → NEPC 17:41
DX: K04.7 Periapical abscess without sinus (principal); E04.1 Nontoxic single thyroid nodule; F41.9 Anxiety disorder, unspecified; F17.200 Nicotine dependence, unspecified, uncomplicated; F11.10 Opioid abuse, uncomplicated; F14.10 Cocaine abuse, uncomplicated; Z79.899 Other long term (current) drug therapy; Z88.0 Allergy status to penicillin
CPT/HCPCS: 70487; 80053; 85025; 85610; 85730; 96372; 99284; Q9967

== ENCOUNTER 2017-12-06 11:36 | Emergency (ER) | payer SELFPAY ==
[~2017-12-06] VITALS: Ht 157.5 cm; Wt 50.0 kg
[~2017-12-06 11:36] MED LIST changes: +CHLO.12%30 SWISH-SPIT; +CLIN300C5 PO; +MAGICPED SWISH-SWAL
[2017-12-06 11:40] VITALS: BP 123/78; PULSE 97; RESP 18; TEMP 98.5; O2SAT 94
[2017-12-06 12:17] LABS: AUTOMATED NEUTROPHIL # 5.2 TH/MM3 (1.8-7.7); BASOPHIL # 0.1 TH/MM3 (0-0.2); BASOPHIL % 0.7 % (0.0-2.0); EOSINOPHIL # 0.4 TH/MM3 (0-0.4); EOSINOPHIL % 4.3 % (0.0-4.0); HEMOGLOBIN 15.3 GM/DL (11.6-15.3); LYMPH % 22.5 % (9.0-44.0); LYMPHOCYTE # 1.9 TH/MM3 (1.0-4.8); MEAN CELL VOLUME 86.2 FL (80.0-100.0); MEAN CORPUSCULAR HGB CONC 34.8 % (32.0-36.0); MEAN PLATELET VOLUME 8.2 FL (7.0-11.0); MONO % 9.5 % (0.0-8.0); MONOCYTE # 0.8 TH/MM3 (0-0.9); PLATELET COUNT 386 TH/MM3 (150-450); RED BLOOD COUNT 5.11 MIL/MM3 (4.00-5.30); RED CELL DISTRIBUTION WIDTH 13.2 % (11.6-17.2); WHITE BLOOD COUNT 8.3 TH/MM3 (4.0-11.0)
--- NOTE | 2017-12-06 12:33 | RADRPT ---
EXAM DATE/TIME: 12/06/2017 12:08 [facility] COMPARISON: No previous studies available for comparison. INDICATIONS : Left leg swelling. MEDICAL HISTORY : Pancreatitis. SURGICAL HISTORY : Tubal ligation. Hysterectomy. ENCOUNTER: Initial ACUITY: 1 week PAIN SCORE: 8/10 LOCATION: Left leg. TECHNIQUE: Venous ultrasound of the leg was performed from the inguinal ligament to the proximal calf. Real-keshia e, color Doppler and spectral tracing, compression and augmentation techniques were used. FINDINGS: There is normal compressibility of the deep venous system from the inguinal region to the proximal ca lf. No echogenic clot is seen in the lumen of the common femoral, femoral, popliteal, and posterior tibial veins. There is a normal response of the venous system to proximal and distal augmentation an d respiration. CONCLUSION: Negative for deep venous thrombosis. Sim Crow MD FACR on December 06, 2017 at 12:31 Board Certified Radiologist. This report was verified electronically.
[2017-12-06 12:36] LABS: ALBUMIN 3.2 GM/DL (3.4-5.0); ALT (GPT) 29 U/L (10-53); AST (GOT) 24 U/L (15-37); BLOOD UREA NITROGEN 9 MG/DL (7-18); CALCIUM 8.9 MG/DL (8.5-10.1); CHLORIDE 105 MEQ/L (98-107); CREATININE 1.02 MG/DL (0.50-1.00); GLOMERULAR FILTRATION RATE 61 ML/MIN (>89); GLUCOSE,RANDOM 101 MG/DL (74-106); SODIUM (NA) 142 MEQ/L (136-145)
[2017-12-06 12:38] LABS: ALKALINE PHOSPHATASE 70 U/L (45-117); TOTAL BILIRUBIN ADULT 0.5 MG/DL (0.2-1.0); TOTAL PROTEIN 8.4 GM/DL (6.4-8.2)
--- NOTE | 2017-12-06 12:42 | PD ---
HPI Chief Complaint: Skin Problem Time Seen by Provider: 12:39 Travel History International Travel<30 days: No Contact w/Intl Traveler<30days: No Traveled to known affect area: No History of Present Illness HPI 37-year-old female presents to emergency department with complaint of left lower leg edema and foot edema with pain 1 week. Reports IV drug use and has been injecting into her legs multiple times. Last injected on Wednesday. Reports subjective fever and chills. Reports numbness and tingling. denies loss of sensation. Denies chest pain, shortness of breath, abdominal pain, vomiting. Rates pain 7/10. Worse with walking, palpation, movement. Pain is constant and unrelieved at rest. Has not taken any medications or try any treatments to alleviate her symptoms. No primary care provider. Allergies to penicillin. History of endocarditis, stroke, hepatitis C. Has no other medical complaints. No other modifying factors or associated signs and symptoms. PFSH Past Medical History Arthritis: No Autoimmune Disease: No Anxiety: Yes Depression: No Heart Rhythm Problems: No Cancer: No Cardiovascular Problems: No High Cholesterol: No Chest Pain: Yes Congestive Heart Failure: No Cerebrovascular Accident: No Diminished Hearing: No Endocrine: No Genitourinary: No Immune Disorder: No Musculoskeletal: Yes Neurologic: Yes Psychiatric: Yes Reproductive: No Respiratory: No Migraines: No ?: Not LMP: now Tubal Ligation: Yes Past Surgical History Abdominal Surgery: No AICD: No Arteriovenous Shunt: No Cardiac Surgery: No Section: Yes Ear Surgery: No Endocrine Surgery: No Eye Surgery: No Genitourinary Surgery: No Gynecologic Surgery: Yes (2 cecessarian sections. ) Insulin Pump: No Joint Replacement: No Oral Surgery: No Pacemaker: No Thoracic Surgery: No Other Surgery: Yes Social History Alcohol Use: No Tobacco Use: Yes (PPD) Substance Use: Yes (Heroin, cocaine ) Allergies-Medications (Allergen,Severity, Reaction): Coded Allergies: penicillin G (Verified Allergy, Severe, hives, 12/06/17) Reported Meds & Prescriptions Reported Meds & Active Scripts Active Reported Abilify Maintena Dual Chamber Inj (Aripiprazole) 400 Mg Inj 400 Mg IM ONCE Review of Systems Except as stated in HPI: all other systems reviewed are Neg Physical Exam Narrative GENERAL: Thin, disheveled female patient, in no acute distress; afebrile, nontoxic-appearing SKIN: Warm and dry. HEAD: Atraumatic. Normocephalic. EYES: Pupils equal and round. No scleral icterus. No injection or drainage. ENT: Mucosa pink and moist. Airway patent. NECK: Trachea midline. CARDIOVASCULAR: Regular rate and rhythm. No murmur appreciated. RESPIRATORY: No accessory muscle use. Breath sounds clear and equal bilaterally. GASTROINTESTINAL: Abdomen soft, non-tender, nondistended. Positive bowel sounds. No hepato-splenomegaly, or palpable masses. No guarding. MUSCULOSKELETAL: Left lower leg and foot is edematous; erythema noted to the dorsal aspect of the left foot; multiple scabbed areas noted to the left lower extremity; no lymphangitis; 2+ pedal pulse; sensory intact. No obvious deformities. No clubbing. No cyanosis. No edema. NEUROLOGICAL: Awake and alert. Oriented 3. No obvious cranial nerve deficits. Motor grossly within normal limits. Normal speech. PSYCHIATRIC: Appropriate mood and affect; insight and judgment normal. Data Data Last Documented VS Vital Signs Date Time Temp Pulse Resp B/P (MAP) Pulse Ox O2 Delivery O2 Flow Rate FiO2 12/06/17 12:51 17 12/06/17 12:48 98.4 89 111/72 (85) 100 Room Air Orders Orders Us Leg Venous Doppler (12/06/17 ) Complete Blood Count With Diff (12/06/17 11:42) Comprehensive Metabolic Panel (12/06/17 11:42) Lactic Acid (12/06/17 11:42) Foot, Complete ([id number]) (12/06/17 12:54) Blood Culture (12/06/17 12:54) Sodium Chlor 0.9% 1000 Ml Inj (Ns 1000 M (12/06/17 12:54) Sodium Chloride 0.9% Flush (Ns Flush) (12/06/17 13:00) Sodium Chlor 0.9% 1000 Ml Inj (Ns 1000 M (12/06/17 13:00) Ketorolac Inj (Toradol Inj) (12/06/17 13:00) Vascular Poc Ultrasound (12/06/17 ) Labs Laboratory Tests Test 12/06/17 12:01 White Blood Count 8.3 TH/MM3 Red Blood Count 5.11 MIL/MM3 Hemoglobin 15.3 GM/DL Hematocrit 44.0 % Mean Corpuscular Volume 86.2 FL Mean Corpuscular Hemoglobin 30.0 PG Mean Corpuscular Hemoglobin Concent 34.8 % Red Cell Distribution Width 13.2 % Platelet Count 386 TH/MM3 Mean Platelet Volume 8.2 FL Neutrophils (%) (Auto) 63.0 % Lymphocytes (%) (Auto) 22.5 % Monocytes (%) (Auto) 9.5 % Eosinophils (%) (Auto) 4.3 % Basophils (%) (Auto) 0.7 % Neutrophils # (Auto) 5.2 TH/MM3 Lymphocytes # (Auto) 1.9 TH/MM3 Monocytes # (Auto) 0.8 TH/MM3 Eosinophils # (Auto) 0.4 TH/MM3 Basophils # (Auto) 0.1 TH/MM3 CBC Comment DIFF FINAL Differential Comment Blood Urea Nitrogen 9 MG/DL Creatinine 1.02 MG/DL Random Glucose 101 MG/DL Total Protein 8.4 GM/DL Albumin 3.2 GM/DL Calcium Level 8.9 MG/DL Alkaline Phosphatase 70 U/L Aspartate Amino Transf (AST/SGOT) 24 U/L Alanine Aminotransferase (ALT/SGPT) 29 U/L Total Bilirubin 0.5 MG/DL Sodium Level 142 MEQ/L Potassium Level 3.2 MEQ/L Chloride Level 105 MEQ/L Carbon Dioxide Level 30.0 MEQ/L Anion Gap 7 MEQ/L Estimat Glomerular Filtration Rate 61 ML/MIN Lactic Acid Level 2.7 mmol/L MDM Medical Decision Making Medical Screen Exam Complete: Yes Emergency Medical Condition: Yes Medical Record Reviewed: Yes Differential Diagnosis Cellulitis, osteomyelitis, abscess Narrative Course 37-year-old female for left foot cellulitis. Patient is IV drug user and has multiple scabbed lesions to the left lower leg. Left lower extremity is supple nontender with 2+ pedal pulse and sensory intact. Patient is afebrile nontoxic pain. Reports subjective fevers. Denies vomiting. CBC, CMP, lactic acid, left leg venous Doppler ultrasound ordered in triage. I discussed patient with Dr. Rogers, my attending physician, and he agrees with my plan of care. 1242: CBC unremarkable. Potassium 3.2, otherwise CMP unremarkable. Lactic acid 2.7. Left lower leg venous Doppler ultrasound concludes: Lower Extremity Ultrasound 12/06/17 0000 Signed Impressions: Service Date/Time: Wednesday, December 06, 2017 12:08 - CONCLUSION: Negative for deep venous thrombosis. Sim Crow MD FACR Discussed ultrasound findings with the patient. Blood cultures, left foot x-ray , normal saline bolus 2, Toradol ordered. 1352: Patient refusing for IV to be started. Discussed need for IV access for antibiotic therapy and patient refused. Patient became agitated when I tried to discuss obtaining IV access and she said she wanted to leave and go to another hospital. AMA: The risks of leaving against medical advice without further evaluation treatment were discussed with the patient. These risks include cardiac dysfunction, cardiac dysrhythmia, possible heart attack, possible stroke or . The patient indicated understanding of these risks and appeared to have the capacity to make this decision. Diagnosis Primary Impression: Left against medical advice Disposition: 07 AGAINST MEDICAL ADVICE Marzena Gregg [facility] Dec 06, 2017 12:42
[2017-12-06 12:48] VITALS: BP 111/72; PULSE 89; RESP 17; TEMP 98.4; O2SAT 100
[2017-12-06] MEDS ORDERED: SODIUM CHLOR 0.9% 1000 ML INJ 1,000 ML IV SCH (12:54)
[2017-12-06] MEDS ORDERED: SODIUM CHLORIDE 0.9% FLUSH 10 ML FLUSH IV FLUSH PRN (13:00)
[2017-12-06] MEDS ORDERED: SODIUM CHLOR 0.9% 1000 ML INJ 1,000 ML IV ONE (13:00)
[2017-12-06] MEDS ORDERED: KETOROLAC TROMETHAMINE 30 MG/ML (IVP) VIAL IV PUSH ONE (13:00)
--- NOTE | 2017-12-06 13:47 | RADRPT ---
EXAM DATE/TIME: 12/06/2017 13:24 [facility] COMPARISON: No previous studies available for comparison. INDICATIONS : Pain and swelling of left foot. MEDICAL HISTORY : None. SURGICAL HISTORY : None. ENCOUNTER: Initial ACUITY: 4 - 6 days PAIN SCORE: 6/10 LOCATION: Left FINDINGS: Soft tissue swelling dorsum of the foot, no fracture. Anatomic alignment. CONCLUSION: Soft tissue swelling, no fracture. No radiopaque foreign body Sim Crow MD FACR on December 06, 2017 at 13:44 Board Certified Radiologist. This report was verified electronically.
== END 2017-12-06 13:52 | disposition left against medical advice (07) ==
LOC: NEPD 11:36
DX: L03.116 Cellulitis of left lower limb (principal); F11.90 Opioid use, unspecified, uncomplicated; F14.90 Cocaine use, unspecified, uncomplicated; R20.0 Anesthesia of skin; R60.0 Localized edema; F41.9 Anxiety disorder, unspecified; F17.210 Nicotine dependence, cigarettes, uncomplicated; Z53.21 Procedure and treatment not carried out due to patient leaving prior to being seen by health care provider; Z88.0 Allergy status to penicillin
CPT/HCPCS: 73630; 80053; 83605; 85025; 87040; 93971; 99285

== ENCOUNTER 2018-02-02 16:46 | Emergency (ER) | payer SELFPAY ==
[~2018-02-02] VITALS: Ht 157.5 cm; Wt 50.0 kg
[~2018-02-02 16:46] MED LIST changes: -CHLO.12%30 SWISH-SPIT; -CLIN150 PO; -CLIN300C5 PO; -HYDR-3516 PO; -IBUP1TAB7 PO; -MAGICPED SWISH-SWAL; -MICO100S VAGINAL
[2018-02-02 16:50] VITALS: BP 125/77; PULSE 87; RESP 16; TEMP 98.3; O2SAT 96
--- NOTE | 2018-02-02 17:12 | PD ---
HPI Chief Complaint: Skin Problem Time Seen by Provider: 17:10 Travel History International Travel<30 days: No Contact w/Intl Traveler<30days: No Traveled to known affect area: No History of Present Illness HPI 37-year-old female came to the emergency room with multiple sores all around her body and an extremely painful swelling of her right index finger tip. Patient has been very agitated and cannot sit still while she is trying to tell me this. Her significant other is in the room and says that she would need to be put out in order to do any surgery. She had something similar happen 2 months ago to her right hand thumb and she was in [facility] and had a surgery done in the OR as per the significant other. Patient denies doing any drugs although she appears to be high on something. It is very hard to have the patient focus and give a proper history. Vital signs are stable. Patient has developed redness and swelling of that entire hand besides just the finger she said and it has become very painful. The pain has been constant. Upon asking she said this has been going on for past 3-4 days. Although once again she is not a reliable historian. [facility] Past Medical History Narrative Medical List of her past medical, surgical, social and family history is reviewed from the nursing note Arthritis: No Autoimmune Disease: No Anxiety: Yes Depression: No Heart Rhythm Problems: No Cancer: No Cardiovascular Problems: Yes High Cholesterol: No Chest Pain: Yes Congestive Heart Failure: No Cerebrovascular Accident: Yes Diminished Hearing: No Endocrine: No Genitourinary: No Hepatitis: Yes (HEP C) Immune Disorder: No Musculoskeletal: Yes Neurologic: Yes Psychiatric: Yes Reproductive: No Respiratory: No Migraines: No Influenza Vaccination: No ?: Not LMP: 02/01/18 Tubal Ligation: Yes Past Surgical History Abdominal Surgery: No AICD: No Arteriovenous Shunt: No Cardiac Surgery: No Section: Yes Ear Surgery: No Endocrine Surgery: No Eye Surgery: No Genitourinary Surgery: No Gynecologic Surgery: Yes (2 cecessarian sections. ) Insulin Pump: No Joint Replacement: No Oral Surgery: No Pacemaker: No Thoracic Surgery: No Other Surgery: Yes Social History Alcohol Use: Yes Tobacco Use: Yes (1 PPD) Substance Use: Yes (STATES SHE'S CLEAN FOR 1 MONTH) Allergies-Medications (Allergen,Severity, Reaction): Coded Allergies: penicillin G (Verified Allergy, Severe, hives, 12/06/17) Comments List of her allergies reviewed from the nursing note Reported Meds & Prescriptions Reported Meds & Active Scripts Active Reported [place] Dual Chamber Inj (Aripiprazole) 400 Mg Inj 400 Mg IM ONCE Narrative Medication List of her home medications reviewed from the nursing note. Review of Systems Except as stated in HPI: all other systems reviewed are Neg Skin: Positive Rash Physical Exam Narrative GENERAL: Awake, alert, extremely agitated and restless. She has been all over the place and in moderate distress SKIN: Focused skin assessment warm/dry. Multiple papulopustular lesions generalized distribution. Right index finger is swollen, tense, extremely tender to touch with fluctuance and probably abscess underneath the dermis. The entire dorsum of the hand is erythematous, swollen and tender to touch HEAD: Atraumatic. Normocephalic. EYES: Pupils equal and round. No scleral icterus. No injection or drainage. ENT: No nasal bleeding or discharge. Mucous membranes pink and moist. NECK: Trachea midline. No JVD. CARDIOVASCULAR: Regular rate and rhythm. No murmur appreciated. RESPIRATORY: No accessory muscle use. Clear to auscultation. Breath sounds equal bilaterally. GASTROINTESTINAL: Abdomen soft, non-tender, nondistended. Hepatic and splenic margins not palpable. MUSCULOSKELETAL: No obvious deformities. No clubbing. No cyanosis. No edema. NEUROLOGICAL: Awake and alert. No obvious cranial nerve deficits. Motor grossly within normal limits. Normal speech. PSYCHIATRIC: Appropriate mood and affect; insight and judgment normal. Data Data Last Documented VS Vital Signs Date Time Temp Pulse Resp B/P (MAP) Pulse Ox O2 Delivery O2 Flow Rate FiO2 02/02/18 16:50 98.3 87 16 125/77 (93) 96 Orders Orders Basic Metabolic Panel (Bmp) (02/02/18 17:21) Complete Blood Count With Diff (02/02/18 17:21) Blood Culture (02/02/18 17:21) Wound Culture And Gram Stain (02/02/18 17:21) Vancomycin Inj (Vancomycin Inj) (02/02/18 17:30) Lactic Acid (02/02/18 17:21) Haloperidol Inj (Haldol Inj) (02/02/18 17:30) Ed Urine Pregnancytest Poc (02/02/18 17:41) Labs Laboratory Tests Test 02/02/18 17:30 02/02/18 17:45 02/02/18 18:00 Blood Urea Nitrogen 8 MG/DL Creatinine 0.84 MG/DL Random Glucose 69 MG/DL Calcium Level 8.6 MG/DL Sodium Level 139 MEQ/L Potassium Level 3.3 MEQ/L Chloride Level 104 MEQ/L Carbon Dioxide Level 26.1 MEQ/L Anion Gap 9 MEQ/L Estimat Glomerular Filtration Rate 76 ML/MIN White Blood Count 10.3 TH/MM3 Red Blood Count 4.26 MIL/MM3 Hemoglobin 12.6 GM/DL Hematocrit 36.5 % Mean Corpuscular Volume 85.6 FL Mean Corpuscular Hemoglobin 29.6 PG Mean Corpuscular Hemoglobin Concent 34.6 % Red Cell Distribution Width 13.6 % Platelet Count 312 TH/MM3 Mean Platelet Volume 8.3 FL Neutrophils (%) (Auto) 64.5 % Lymphocytes (%) (Auto) 24.0 % Monocytes (%) (Auto) 8.0 % Eosinophils (%) (Auto) 3.1 % Basophils (%) (Auto) 0.4 % Neutrophils # (Auto) 6.6 TH/MM3 Lymphocytes # (Auto) 2.5 TH/MM3 Monocytes # (Auto) 0.8 TH/MM3 Eosinophils # (Auto) 0.3 TH/MM3 Basophils # (Auto) 0.0 TH/MM3 CBC Comment DIFF FINAL Differential Comment Lactic Acid Level 0.5 mmol/L [facility] Medical Decision Making Medical Screen Exam Complete: Yes Emergency Medical Condition: Yes Medical Record Reviewed: Yes Differential Diagnosis Cellulitis, necrotizing fasciitis,felon Narrative Course 6:16 PM patient was noted to get IV fluids, blood work, CT scan. I ordered Haldol to get her calm down in order to get the workup achieved. However patient refused to get the medication. This medicine was not listed as an allergy in her list. She started arguing with the nurse and the nurse came and told me that patient wanted to leave at this point. She has left AMA. In spite of her agitated state and restlessness she is in full capacity to make decisions for herself. She refused to sign AMA, ripped her IV off and walked out. Procedures EKG Prior to Arrival: No Disposition: 07 AGAINST MEDICAL ADVICE Condition: Serious Chandu Cruz MD Feb 02, 2018 17:12
[2018-02-02] MEDS ORDERED: HALOPERIDOL LACTATE 5 MG/ML AMP IM ONE (17:30)
[2018-02-02] MEDS ORDERED: VANCOMYCIN INJ 1,000 MG in SODIUM CHLOR 0.9% 250 ML INJ 250 ML IV ONE (17:30)
[2018-02-02 18:31] LABS: AUTOMATED NEUTROPHIL # 6.6 TH/MM3 (1.8-7.7); BASOPHIL % 0.4 % (0.0-2.0); EOSINOPHIL # 0.3 TH/MM3 (0-0.4); EOSINOPHIL % 3.1 % (0.0-4.0); HEMATOCRIT 36.5 % (35.0-46.0); HEMOGLOBIN 12.6 GM/DL (11.6-15.3); LYMPHOCYTE # 2.5 TH/MM3 (1.0-4.8); MEAN CELL VOLUME 85.6 FL (80.0-100.0); MEAN CORPUSCULAR HEMOGLOBIN 29.6 PG (27.0-34.0); MEAN CORPUSCULAR HGB CONC 34.6 % (32.0-36.0); MEAN PLATELET VOLUME 8.3 FL (7.0-11.0); MONOCYTE # 0.8 TH/MM3 (0-0.9); NEUT % 64.5 % (16.0-70.0); PLATELET COUNT 312 TH/MM3 (150-450); RED BLOOD COUNT 4.26 MIL/MM3 (4.00-5.30); RED CELL DISTRIBUTION WIDTH 13.6 % (11.6-17.2); WHITE BLOOD COUNT 10.3 TH/MM3 (4.0-11.0)
[2018-02-02 18:51] LABS: BICARBONATE 26.1 MEQ/L (21.0-32.0); CALCIUM 8.6 MG/DL (8.5-10.1); CREATININE 0.84 MG/DL (0.50-1.00)
== END 2018-02-02 23:01 | disposition left against medical advice (07) ==
LOC: NEPD 16:46
DX: R22.31 Localized swelling, mass and lump, right upper limb (principal); M79.644 Pain in right finger(s); L53.9 Erythematous condition, unspecified; R45.1 Restlessness and agitation; F17.200 Nicotine dependence, unspecified, uncomplicated; Z53.29 Procedure and treatment not carried out because of patient's decision for other reasons; Z86.79 Personal history of other diseases of the circulatory system; Z87.39 Personal history of other diseases of the musculoskeletal system and connective tissue; Z87.19 Personal history of other diseases of the digestive system; Z86.69 Personal history of other diseases of the nervous system and sense organs; Z86.59 Personal history of other mental and behavioral disorders
CPT/HCPCS: 80048; 83605; 85025; 87040; 99283